=== PATIENT | female | born 1965 | race Caucasian/White ===

== ENCOUNTER 2020-10-04 09:09 | Outpatient (REF) | payer OTHER, SELFPAY ==
[2020-10-04 10:07] LABS: MANUAL DIFF FLAG NO
[2020-10-04 10:24] LABS: Basophils Percent Auto 0.5 % (0-2); Eosinophils Absolute Auto 0.2 X10*3/uL (0.0-0.4); Eosinophils Percent Auto 2.1 % (0-4); Hematocrit 41.2 % (37-47); Hemoglobin 13.9 g/dl (12.0-16.0); Imm Gran Abs Auto 0.02 X10*3/uL (0.00-0.03); Imm Gran Pct Auto 0.2 % (0.0-0.4); Lymphocytes Absolute Auto 2.9 X10*3/uL (1.2-4.9); Lymphocytes Percent Auto 35.1 % (20-40); Mean Corpuscular HGB Conc 33.7 g/dl (31.0-35.0); Mean Corpuscular Hemoglobin 29.5 pg (27.0-33.0); Mean Corpuscular Volume 87.5 fL (80-98); Mean Platelet Volume 9.4 fL (9.4-12.3); Monocytes Absolute Auto 0.6 X10*3/uL (0.1-1.2); Monocytes Percent Auto 6.7 % (2-11); Neutrophils Absolute Auto 4.5 X10*3/uL (2.0-8.3); Neutrophils Percent Auto 55.4 % (45-73); Platelet Count 245 X10*3/uL (160-400); Red Blood Count 4.71 X10*6/uL (4.20-5.50); Red Cell Distribution Width 12.8 % (11.0-16.0); White Blood Count 8.2 X10*3/uL (4.8-10.8)
[2020-10-04 10:34] LABS: Alanine Aminotransferase 48 U/L (0-31); Albumin Level 4.2 g/dL (3.5-5.0); Alkaline Phosphatase 76 U/L (39-117); Anion Gap 11 (12-20); Aspartate Amino Transferase 31 U/L (5-31); Bilirubin Total 0.5 mg/dL (0.0-1.0); Blood Urea Nitrogen 14 mg/dL (9-16); Calcium 8.8 mg/dL (8.4-10.2); Carbon Dioxide 28 mmol/L (22-29); Chloride 105 mmol/L (96-108); Cholesterol 186 mg/dL; Estimated Glomerular Filt Rate > 60; Glucose Fasting 102 mg/dL (60-99); HDL Cholesterol 47 mg/dL; LDL Cholesterol Calculated 120 mg/dl; Potassium 4.1 mmol/l (3.3-5.1); Sodium 140 mmol/L (135-145); Triglycerides 98 mg/dL
[2020-10-04 10:59] LABS: TSH reflex Free T4 1.47 mIU/mL (0.32-4.0); Vitamin D 25-OH Total 33.4 ng/mL (>30)
[2020-10-05 12:52] LABS: CA-125 8 U/mL (<35)
== END 2020-10-04 09:10 | disposition home or self-care (01) ==
LOC: HO.LAB 09:09
PROVIDERS: Visit Provider Internal Medicine
DX: E66.09 Other obesity due to excess calories (principal); K21.9 Gastro-esophageal reflux disease without esophagitis; E55.9 Vitamin D deficiency, unspecified; Z80.0 Family history of malignant neoplasm of digestive organs
CPT/HCPCS: 36415; 80053; 80061; 82306; 84443; 85025; 86304

== ENCOUNTER 2020-10-20 08:10 | Outpatient (REF) | payer OTHER, SELFPAY ==
--- NOTE | 2020-10-20 08:15 | MM_ITS ---
EXAMINATION: MM SCREENING DIGITAL BREAST TOMOSYNTHESIS, BILATERAL CLINICAL INFORMATION: Screening. Asymptomatic. Family history breast cancer in 4 maternal aunts. Personal history resection 4 mm tumor left breast 10/29/2016. The lifetime risk of breast cancer based on the Tyrer-Cuzick Model is 25%. COMPARISON: Mammography: 10/15/2019, 04/06/2018, 04/02/2017, 10/11/2016, 09/13/2016 TECHNIQUE: Digital breast tomosynthesis is performed in both the craniocaudal and mediolateral oblique views along with computer-aided detection (CAD). Synthesized 2D images are generated from the tomosynthesis. Additional exaggerated right CC view is provided. FINDINGS: The breasts are heterogeneously dense, which may obscure small masses (ACR BI-RADS breast composition Category c). There are no significant masses, abnormal calcifications, or other abnormalities. There are postsurgical changes on the left with minor scarring. There are 2 biopsy clip markers again noted left breast just medial to midline. MM/MM tomosynthesis screening BI IMPRESSION: No mammographic evidence of malignancy. ASSESSMENT: BI-RADS 2: Benign RECOMMENDATION: 1. Routine annual mammography screening. 2. The lifetime risk of breast cancer based on the Tyrer-Cuzick Model is 25%. Additional annual adjunct screening with breast MRI may be of benefit in women with a risk score of 20% or greater. This patient's information was entered into a reminder system with a target due date for their next mammogram.
== END 2020-10-20 08:11 | disposition home or self-care (01) ==
LOC: HO.MAMMO 08:10
PROVIDERS: Visit Provider Surgery
DX: Z12.31 Encounter for screening mammogram for malignant neoplasm of breast (principal)
CPT/HCPCS: 77063; 77067

== ENCOUNTER 2020-10-25 08:52 | Outpatient (REF) | payer OTHER, SELFPAY ==
--- NOTE | 2020-10-25 08:56 | US_ITS ---
EXAMINATION: US COMPLETE ABDOMEN WITH LIVER ELASTOGRAPHY CLINICAL INFORMATION: Elevation of levels of liver transaminase. COMPARISON: None. TECHNIQUE: Real-time imaging of the abdominal viscera. Noninvasive ultrasound liver fibrosis assessment is performed using [employer] ElastPQ point quantification shear wave elastography (pSWE) with a 5 MHz transducer. Multiple elastography samples are obtained. FINDINGS: PANCREAS: Normal. The visualized pancreatic head and body are normal in appearance. The remainder of the pancreas is obscured from visualization by the overlying bowel gas. ABDOMINAL AORTA: The proximal, middle, and distal aortic segments are normal in caliber. INFERIOR VENA CAVA: Visualized portions are normal. LIVER: The liver demonstrates increased size, normal contour and increased echogenicity. No focal lesion or intrahepatic biliary duct dilatation. The right lobe measures 17.3 cm in length. The left lobe measures 13.9 cm in length. There is normal hepatopedal flow seen in the portal vein on Doppler exam. Shear wave elastography provides a median stiffness of 1.39 m/s (reference: normal median stiffness is 0.81 - 1.22 m/s). The IQR/median stiffness to assess sampling precision is 0.24 (reference: optimal IQR/median stiffness is under 0.3). GALLBLADDER: Normal. The gallbladder is physiologically distended without evidence of stones, sludge, polyps, wall thickening, or pericholecystic fluid. COMMON BILE DUCT: Normal in caliber measuring 0.41 cm in diameter. RIGHT KIDNEY: Normal. No hydronephrosis. No renal calculi or focal parenchymal lesions. The kidney measures 12.6 cm in maximum dimension. LEFT KIDNEY: Normal. No hydronephrosis. No renal calculi or focal parenchymal lesions. The kidney measures 12.3 cm in maximum dimension. SPLEEN: Normal. The spleen measures 11.0 cm in maximum dimension. FREE FLUID: None. US/US abdomen comp w elastography IMPRESSION: 1. Mild hepatomegaly with increased liver echogenicity. No focal mass seen. 2. Slightly lobulated lower pole left kidney. No echogenic renal stones. No echogenic gallstones. 3. Elastography: Capv-kn-[id number] fibrosis, stage F2 - F3.
== END 2020-10-25 08:53 | disposition home or self-care (01) ==
LOC: HO.US 08:52
PROVIDERS: PCP Internal Medicine; Visit Provider Internal Medicine
DX: R74.01 Elevation of levels of liver transaminase levels (principal)
CPT/HCPCS: 76705; 76981

== ENCOUNTER 2021-05-16 08:01 | Outpatient (REF) | payer OTHER, SELFPAY ==
--- NOTE | ~2021-05-16 | MM_ITS ---
EXAMINATION: BONE DENSITOMETRY CLINICAL INDICATION: Screening for osteoporosis. COMPARISON: None (current study represents initial baseline exam). TECHNIQUE: Using a [employer] DXA System (software version: 13.1) manufactured by [employer], dual-energy x-ray absorptiometry was performed of the lumbar spine and left hip. The images are of good technical quality. Summary results are attached. FINDINGS: AP SPINE L1-L4: BMD 1.277 g/cm2, Z-score 0.9, T-score 0.8, normal. LEFT FEMUR, NECK: BMD 1.147 g/cm2, Z-score 1.4, T-score 0.8, normal. LEFT FEMUR, TOTAL: BMD 1.361 g/cm2, Z-score 3.0, T-score 2.8, normal. IDENTIFIED RISK FACTORS: Menopause. HISTORY OF FRACTURE: None listed. MEDICATIONS: Multivitamin. MM/XR DEXA axial skeleton IMPRESSION: 1. DIAGNOSIS: Normal bone density based on the lowest T-score value of 0.8 in the lumbar spine and femur neck applying World Health Organization criteria. 2. 10-YEAR FRACTURE RISK PREDICTION, FRAX: Major osteoporotic fracture (clinical spine, forearm, hip or shoulder) 4.1%. Hip fracture 0.0%. 3. Treatment Recommendations: NOF guidelines recommend consideration for treatment in postmenopausal women and men age 50 and older presenting with the following: -A hip or vertebral (clinical or morphometric) fracture. -T-score less than or equal to -2.5 at the femoral neck or spine after appropriate evaluation to exclude secondary causes. -Low bone mass at the hip or spine and a 10-year fracture probability by FRAX of greater than or equal to 3% for hip fracture or greater than or equal to 20% for major osteoporotic fracture based on the [place] adapted WHO algorithm. 4. Other Recommendations: All treatment decisions require clinical judgment and consideration of individual patient factors, including patient preferences, comorbidities, previous drug use, risk factors not captured in the FRAX model (e.g. frailty, falls, vitamin D deficiency, increased bone turnover, interval significant decline in bone density) and possible under or overestimation of fracture risk by FRAX. FUTURE SCAN RECOMMENDATION: People with diagnosed cases of osteoporosis or at high risk for fracture should have regular bone mineral density tests. For patients eligible for Medicare, routine testing is allowed once every 2 years. The testing frequency can be increased to one year for patients who have rapidly progressing disease, those who are receiving or discontinuing medical therapy to restore bone mass, or have additional risk factors.
== END 2021-05-16 08:02 | disposition home or self-care (01) ==
LOC: HO.MAMMO 08:01
PROVIDERS: Visit Provider Internal Medicine
DX: Z13.820 Encounter for screening for osteoporosis (principal); Z78.0 Asymptomatic menopausal state
CPT/HCPCS: 77080

== ENCOUNTER 2021-06-30 07:25 | Outpatient (REF) | payer OTHER, SELFPAY ==
[2021-06-30 08:59] LABS: Alanine Aminotransferase 33 U/L (0-31); Albumin Level 4.1 g/dL (3.5-5.0); Alkaline Phosphatase 83 U/L (39-117); Anion Gap 13 (12-20); Aspartate Amino Transferase 26 U/L (5-31); Bilirubin Total 0.8 mg/dL (0.0-1.0); Blood Urea Nitrogen 15 mg/dL (9-16); Carbon Dioxide 24 mmol/L (22-29); Chloride 109 mmol/L (96-108); Cholesterol 171 mg/dL; Estimated Glomerular Filt Rate > 60; Glucose Fasting 103 mg/dL (60-99); HDL Cholesterol 51 mg/dL; LDL Cholesterol Calculated 109 mg/dl; Sodium 142 mmol/L (135-145); Total Protein 6.7 g/dL (6.5-8.0); Triglycerides 58 mg/dL
[2021-07-02 08:46] LABS: HBc Num1 0.06 S/CO (0.00-0.79); HBsAGNum1 0.19 S/CO (0.00-0.99); Hepatitis B Core Antibody Nonreactive (Nonreactive); Hepatitis B Surface Antigen Negative (Negative); ~HepC Num1 0.12 S/CO (0.00-0.79); ~Hepatitis C Antibody Nonreactive (Nonreactive)
[2021-07-02 08:58] LABS: HBS Num1 0.47 mIU/mL (0-7.99); ~Hepatitis B Surface Antibody NONREACTIVE (Nonreactive)
[2021-07-02 17:41] LABS: Lyme Abs Screen <0.90 index
[2021-07-02 22:37] LABS: CA-125 9 U/mL (<35)
[2021-07-04 08:07] LABS: Hepatitis A Antibody IgM 0.11 Index (0-0.79); ~Hepatitis A Antibody IgM Nonreactive (Nonreactive)
[2021-07-05 12:47] LABS: Vitamin D 25-OH, D2 <4 ng/mL; Vitamin D 25-OH, D3 35 ng/mL; Vitamin D 25-OH, Total 35 ng/mL (30-100)
== END 2021-06-30 07:26 | disposition home or self-care (01) ==
LOC: HO.LAB 07:25
PROVIDERS: PCP Internal Medicine; Visit Provider Internal Medicine
DX: R74.01 Elevation of levels of liver transaminase levels (principal); E55.9 Vitamin D deficiency, unspecified; E78.5 Hyperlipidemia, unspecified; M25.50 Pain in unspecified joint; Z80.41 Family history of malignant neoplasm of ovary
CPT/HCPCS: 36415; 80053; 80061; 82306; 86304; 86617; 86618; 86704; 86706; 86709; 86803; 87340

== ENCOUNTER 2021-12-28 07:52 | Outpatient (REF) | payer OTHER, SELFPAY ==
[2021-12-28 08:18] LABS: MANUAL DIFF FLAG NO
[2021-12-28 08:29] LABS: Basophils Absolute Auto 0.1 X10*3/uL (0.0-0.2); Basophils Percent Auto 0.6 % (0-2); Eosinophils Absolute Auto 0.1 X10*3/uL (0.0-0.4); Eosinophils Percent Auto 1.6 % (0-4); Hematocrit 40.2 % (37.0-47.0); Hemoglobin 13.8 g/dl (12.0-16.0); Imm Gran Abs Auto 0.04 X10*3/uL (0.00-0.03); Imm Gran Pct Auto 0.5 % (0.0-0.4); Lymphocytes Absolute Auto 2.7 X10*3/uL (1.2-4.9); Lymphocytes Percent Auto 34.4 % (20-40); Mean Corpuscular HGB Conc 34.3 g/dl (31.0-35.0); Mean Corpuscular Hemoglobin 30.1 pg (27.0-33.0); Mean Corpuscular Volume 87.8 fL (80.0-98.0); Mean Platelet Volume 9.6 fL (9.4-12.3); Monocytes Absolute Auto 0.5 X10*3/uL (0.1-1.2); Monocytes Percent Auto 6.8 % (2-11); NRBC Pct Auto 0.4 /100WBC (0.0-0.2); Neutrophils Absolute Auto 4.5 x10*3/uL (2.0-8.3); Neutrophils Percent Auto 56.1 % (45-73); Platelet Count 231 X10*3/uL (160-400); Red Blood Count 4.58 X10*6/uL (4.20-5.50); Red Cell Distribution Width 13.2 % (11.0-16.0)
[2021-12-28 09:00] LABS: Alanine Aminotransferase 35 U/L (0-31); Albumin Level 4.1 g/dL (3.5-5.0); Alkaline Phosphatase 82 U/L (39-117); Anion Gap 10 (12-20); Aspartate Amino Transferase 24 U/L (5-31); Bilirubin Total 0.9 mg/dL (0.0-1.0); Blood Urea Nitrogen 15 mg/dL (9-16); Calcium 9.4 mg/dL (8.4-10.2); Carbon Dioxide 28 mmol/L (22-29); Chloride 107 mmol/L (96-108); Cholesterol 165 mg/dL; Estimated Glomerular Filt Rate > 60; Glucose Fasting 101 mg/dL (60-99); HDL Cholesterol 47 mg/dL; LDL Cholesterol Calculated 104 mg/dl; Potassium 4.4 mmol/L (3.3-5.1); Sodium 141 mmol/L (135-145); Total Protein 6.8 g/dL (6.5-8.0); Triglycerides 72 mg/dL
[2021-12-28 10:03] LABS: HBsAGNum1 0.23 S/CO (0.00-0.99); Hepatitis B Surface Antigen Negative (Negative); ~HepC Num1 0.11 S/CO (0.00-0.79); ~Hepatitis C Antibody Nonreactive (Nonreactive)
[2021-12-28 12:34] LABS: HBc Num1 0.09 S/CO (0.00-0.79); Hepatitis A Antibody IgM 0.29 Index (0-0.79); Hepatitis B Core Antibody Nonreactive (Nonreactive); ~Hepatitis A Antibody IgM Nonreactive (Nonreactive); ~Hepatitis B Surface Antibody NONREACTIVE (Nonreactive)
[2021-12-31 17:52] LABS: CA 125 New Method 7 U/mL (<35); CA-125 7 U/mL (<35)
[2022-01-02 13:41] LABS: Vitamin D 25-OH, D2 <4 ng/mL; Vitamin D 25-OH, D3 34 ng/mL; Vitamin D 25-OH, Total 34 ng/mL (30-100)
== END 2021-12-28 07:53 | disposition home or self-care (01) ==
LOC: HO.LAB 07:52
PROVIDERS: PCP Internal Medicine; Visit Provider Internal Medicine
DX: E66.9 Obesity, unspecified (principal); Z68.31 Body mass index [BMI] 31.0-31.9, adult; R74.01 Elevation of levels of liver transaminase levels; E55.9 Vitamin D deficiency, unspecified; K21.9 Gastro-esophageal reflux disease without esophagitis
CPT/HCPCS: 36415; 80053; 80061; 82306; 85025; 86304; 86704; 86706; 86709; 86803; 87340

== ENCOUNTER → 2022-02-19 08:13 | Outpatient (BNVA) | payer OTHER, SELFPAY | PROVIDERS: PCP Internal Medicine; Referring Provider Internal Medicine; Visit Provider Nurse Practitioner | DX: R74.01 Elevation of levels of liver transaminase levels (principal) ==

== ENCOUNTER 2022-03-16 08:39 | Outpatient (REF) | payer OTHER, SELFPAY ==
[2022-03-16 09:40] LABS: Gamma Glutamyl Transpeptidase 13 U/L (7-33)
[2022-03-16 10:05] LABS: Ferritin 16 ng/mL (10-250); TSH reflex Free T4 1.09 uIU/mL (0.32-4.0)
[2022-03-19 15:56] LABS: Mitochondrial Antibodies NEGATIVE (NEGATIVE)
[2022-03-20 11:47] LABS: Alpha Fetoprotein 3.5 ng/mL
[2022-03-20 23:36] LABS: Smooth Muscle Antibody <20 U (<20)
== END 2022-03-16 08:40 | disposition home or self-care (01) ==
LOC: HO.LAB 08:39
PROVIDERS: PCP Internal Medicine; Visit Provider Nurse Practitioner
DX: R74.01 Elevation of levels of liver transaminase levels (principal); Z83.49 Family history of other endocrine, nutritional and metabolic diseases
CPT/HCPCS: 36415; 82105; 82728; 82977; 84443; 85610; 86015; 86255; 86256

== ENCOUNTER 2022-03-27 07:50 | Outpatient (REF) | payer OTHER, SELFPAY ==
--- NOTE | ~2022-03-27 | US_ITS ---
EXAMINATION: US ABDOMEN LIMITED CLINICAL INFORMATION: Elevated liver transaminase. COMPARISON: Previous exam October 2020 TECHNIQUE: Real-time imaging of the right upper quadrant abdominal viscera. Full abdomen exam was inadvertently performed with imaging of the left kidney, spleen, aorta and IVC FINDINGS: PANCREAS: Normal. LIVER: Liver echotexture is increased. The liver is normal in size. The liver contour is normal. No focal hepatic lesion. There is no intrahepatic biliary duct dilatation seen. GALLBLADDER: Normal. The gallbladder is physiologically distended without evidence of stones, sludge, polyps, wall thickening or pericholecystic fluid. COMMON BILE DUCT: Normal in caliber measuring 0.4 cm in diameter. RIGHT KIDNEY: Normal. No hydronephrosis. No renal calculi or focal parenchymal lesions. The kidney measures 10.7 cm in maximum dimension. FREE FLUID: None. The aorta and IVC are normal. The left kidney is normal and measures 10.7 cm in length. The spleen is normal and measures 11.8 cm in length US/US abdomen limited IMPRESSION: Echogenic liver. Differential would include fatty infiltration of hepatocellular disease. Otherwise unremarkable exam.
== END 2022-03-27 07:51 | disposition home or self-care (01) ==
LOC: HO.US 07:50
PROVIDERS: Visit Provider Nurse Practitioner
DX: R74.01 Elevation of levels of liver transaminase levels (principal); Z83.49 Family history of other endocrine, nutritional and metabolic diseases
CPT/HCPCS: 76705

== ENCOUNTER 2022-04-02 08:52 | Outpatient (REF) | payer OTHER, SELFPAY ==
--- NOTE | ~2022-04-02 | MM_ITS ---
EXAMINATION: MM SCREENING DIGITAL BREAST TOMOSYNTHESIS, BILATERAL CLINICAL INFORMATION: Screening. Asymptomatic. 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 The lifetime risk of breast cancer based on the Tyrer-Cuzick Model is 14%. COMPARISON: Mammography: 10/20/2020, 10/15/2019, 04/06/2018, 11/02/2016 TECHNIQUE: Digital breast tomosynthesis is performed in both the craniocaudal and mediolateral oblique views along with computer-aided detection (CAD). Synthesized 2D images are generated from the tomosynthesis. FINDINGS: The breasts are heterogeneously dense, which may obscure small masses (ACR BI-RADS breast composition Category c). There are no significant masses, abnormal calcifications, or other abnormalities. Left breast has minor scarring and 2 biopsy clip markers posterior medial breast similar to prior studies. There are scattered shifting fibroglandular parenchymal asymmetries related to variation in positioning. No developing density. MM/MM tomosynthesis screening BI IMPRESSION: No significant changes from prior studies. ASSESSMENT: BI-RADS 2: Benign RECOMMENDATION: Routine annual mammography screening. This patient's information was entered into a reminder system with a target due date for their next mammogram.
== END 2022-04-02 08:53 | disposition home or self-care (01) ==
LOC: HO.MAMMO 08:52
PROVIDERS: PCP Internal Medicine; Visit Provider Internal Medicine
DX: Z12.31 Encounter for screening mammogram for malignant neoplasm of breast (principal)
CPT/HCPCS: 77063; 77067

== ENCOUNTER 2023-04-04 07:50 | Outpatient (REF) | payer OTHER, SELFPAY ==
--- NOTE | ~2023-04-04 | MM_ITS ---
EXAMINATION: MM SCREENING DIGITAL BREAST TOMOSYNTHESIS, BILATERAL CLINICAL INFORMATION: Screening. Asymptomatic. The lifetime risk of breast cancer based on the Tyrer-Cuzick Model is 20.7.%. COMPARISON: Mammography: This study is compared to prior exams dating back to 2017. TECHNIQUE: Digital breast tomosynthesis is performed in both the craniocaudal and mediolateral oblique views along with computer-aided detection (CAD). Synthesized 2D images are generated from the tomosynthesis. FINDINGS: The breasts are heterogeneously dense, which may obscure small masses (ACR BI-RADS breast composition Category c). Left breast: At the upper inner quadrant of the left breast, at a middle depth and between 2 previously placed biopsy tissue markers, there is a well-circumscribed focal asymmetry which warrants additional mammographic imaging. This finding may represent adjacent to mammary lymph nodes versus cysts. There is architectural changes in the 12:00 region of the left breast from prior surgery for benign disease.. Right breast: In the right breast, no significant masses, abnormal calcifications, or other abnormalities. MM/MM tomosynthesis screening BI IMPRESSION: Focal asymmetry of the left breast warrants additional mammographic imaging. Sonographic imaging is recommended at the discretion of the diagnostic radiologist. Benign postsurgical changes of the left breast present. No mammographic signs of malignancy right breast. Breast cancer risk assessment by the Tyrer-Cuzick Model is 20.7.%. This places the patient at high risk for malignancy. If the patient is not already having annual adjunct screening breast MRI, this is recommended. ASSESSMENT: BI-RADS BI-RADS 0 - Incomplete: Needs additional Imaging. RECOMMENDATION: Routine annual mammography screening. Additional Imaging required This patient's information was entered into a reminder system with a target due date for their next mammogram.
== END 2023-04-04 07:51 | disposition home or self-care (01) ==
LOC: HO.MAMMO 07:50
PROVIDERS: PCP Internal Medicine; Visit Provider Internal Medicine
DX: Z12.31 Encounter for screening mammogram for malignant neoplasm of breast (principal)
CPT/HCPCS: 77063; 77067

== ENCOUNTER → 2023-04-04 08:00 | Outpatient (BNV) | payer OTHER, SELFPAY | PROVIDERS: PCP Internal Medicine; Visit Provider Radiology Diagnostic Radiology | DX: Z12.31 Encounter for screening mammogram for malignant neoplasm of breast (principal) | CPT/HCPCS: 77063; 77067 ==

== ENCOUNTER 2023-05-09 09:04 | Outpatient (REF) | payer OTHER, SELFPAY ==
--- NOTE | ~2023-05-09 | MM_ITS ---
EXAMINATION: MM DIAGNOSTIC DIGITAL BREAST TOMOSYNTHESIS, LEFT CLINICAL INFORMATION: The patient is called back for further evaluation of the left breast focal asymmetry noted on recent screening mammography from 04/04/2023. COMPARISON: Mammography: This study is compared to prior mammograms dating back to 2017. MAMMOGRAPHY: TECHNIQUE: Digital breast tomosynthesis is performed in both the craniocaudal and mediolateral oblique views along with computer-aided detection (CAD). Synthesized 2D images are generated from the tomosynthesis. A full lateral view of the left breast and MLO and CC spot compression imaging of the left breast was performed. FINDINGS: There are scattered areas of fibroglandular density (ACR BI-RADS breast composition Category b). Additional mammographic imaging reveals no persistent underlying abnormality. There are no significant masses, abnormal calcifications, or other abnormalities. Incidental note is made of biopsy tissue markers. ULTRASOUND: Sonography of the upper inner quadrant of the left breast reveals no discrete abnormality. Results are provided to the patient at time of visit by the technologist. MM/MM tomosynthesis added views L IMPRESSION: No mammographic evidence of malignancy. ASSESSMENT: BI-RADS BI-RADS 2 - Benign Findings RECOMMENDATION: 1 year F/U This patient's information was entered into a reminder system with a target due date for their next mammogram.
== END 2023-05-09 09:05 | disposition home or self-care (01) ==
LOC: HO.MAMMO 09:04
PROVIDERS: PCP Internal Medicine; Visit Provider Internal Medicine
DX: N64.89 Other specified disorders of breast (principal)
CPT/HCPCS: 76642; 77061; 77065

== ENCOUNTER → 2023-05-09 09:30 | Outpatient (BNV) | payer OTHER, SELFPAY | PROVIDERS: PCP Internal Medicine; Visit Provider Radiology Diagnostic Radiology | DX: R92.2 Inconclusive mammogram (principal) | CPT/HCPCS: 76642; 77065 ==

== ENCOUNTER 2023-08-07 08:48 | Outpatient (AMB) | payer OTHER, SELFPAY ==
[2023-08-07 08:55] VITALS: BP 130/70; PULSE 75; O2SAT 97; BMI 33.3
--- NOTE | 2023-08-07 08:55 | MHC.PC.OV ---
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 Last mammogram was 2022 and was normal. Last colonoscopy was few years ago and she complains of blood in the stools occasionally and has family history of colon cancer. Will have colonoscopy 08/19/2023 in [place]. Complains of right lower quadrant abdominal pain that started mid June and happens occasionally crampy like in quality. No weight loss. Some occasional constipation. Has strong family history of ovarian cancer, breast cancer and pancreatic cancer. FOR[facility]LY [facility], [facility] Medical History (Updated 08/07/23 @ 09:24 by Blaire Simpson MD) Class 1 obesity with body mass index (BMI) of 32.0 to 32.9 in adult Class 1 obesity with body mass index (BMI) of 31.0 to 31.9 in adult Screening for osteoporosis Family history of ovarian cancer Transaminitis GERD (gastroesophageal reflux disease) Abnormal finding on imaging Surgical History History of endoscopy History of colonoscopy History of carpal tunnel surgery of right wrist History of carpal tunnel surgery of left wrist History of D&C History of breast lump/mass excision Family History Father CVD (cardiovascular disease) CHF (congestive heart failure) Aortic stenosis Mother Ovarian cancer Diabetes Maternal Uncle Colon cancer Maternal Aunt Cancer Family/Other Breast cancer Ovarian cancer Pancreatic cancer Social History Housing: House Alcohol intake: never Patient Tobacco Use Status: Never used Tobacco e-Cigarette/Vaping Use: Never Used Second Hand Smoke Exposure: No service: No Current occupational status: employed Current occupational exposures/hazards: No Cognitive needs: No Hearing needs: No Vision needs: Yes Questionnaire Thrive Questionnaire Date Thrive assessed: 01/07/23 MARCY-7 AMB Questionnaire MARCY-7 Date MARCY - 7 assessed: 01/07/23 Source: Developed by Drs. Kota Davis, Lesli Macdonald, Dallin Keller and colleagues, with an educational yohana from [employer]. Review of Systems Const All systems reviewed & are unremarkable except as noted in HPI and below Eyes Reports no additional complaints, Denies change in vision and Denies other visual disturbances Card Denies chest pain at rest, Denies chest pain with activity, Denies edema, Denies irregular heart rhythm, Denies claudication, Denies dyspnea, Denies dyspnea on exertion, Denies orthopnea, Denies paroxysmal nocturnal dyspnea and Denies slow heart rate Resp Denies cough, Denies dyspnea and Denies dyspnea on exertion GI Reports abdominal pain, Reports hematochezia, Denies change in bowel habits, Reports constipation, Denies excessive flatus, Reports heartburn, Denies nausea and Denies vomiting Denies urinary incontinence, Denies urinary hesitancy and Denies urinary urgency Musc Denies abnormal gait, Denies atrophy, Denies deformity and Denies limited range of motion Skin/Breast Denies bleeding lesions, Denies changing lesions and Denies rash Neuro Denies abnormal gait and Denies lack of coordination Physical exam (Primary Care) Vital Signs: Last Vital Signs Pulse 75 08/07/23 08:55 BP 130/70 08/07/23 08:55 Pulse Ox 97 08/07/23 08:55 Oxygen Delivery Method Room Air 08/07/23 08:55 BMI result Body Mass Index 33.3 Tobacco/Smoking Status: Tobacco use Status Tobacco use date assessed 01/07/23 08/07/23 09:00 Patient Tobacco Use Status Never used Tobacco 08/07/23 09:00 e-Cigarette/Vaping Use Never Used 08/07/23 09:00 Thrive Assessment: Date of Thrive Assessment Date Thrive assessed 01/07/23 08/07/23 09:00 Const Orientation/consciousness: patient oriented x3 HENMT Head: Yes normal to inspection, Yes normocephalic and Yes atraumatic Ears: external ears normal Eyes General: appearance normal, both eyes and all related structures Eyelids: Yes eyelids normal Conjunctivae: conjunctivae normal Neck Neck: Yes normal visual inspection and Yes supple Resp Effort & Inspection: normal respiratory effort Auscultation: clear to auscultation bilaterally Cardio Jugular venous distension: no JVD Rate: regular rate Rhythm: regular rhythm Heart sounds: S1 normal heart sound present and S2 normal heart sound present GI Other: psoas sign negative Inspection: Yes normal to inspection Palpation (GI): Soft to palpation and nontender Auscultation: normal bowel sounds Skin General skin exam: no rashes or lesions noted Neuro General: patient oriented x3 and no focal motor deficits Extrem General: Yes full ROM Psych Appearance: grossly normal Office Procedures Flu Questionnaire Does the patient have a severe egg allergy?: No Immunizations flu vacc [id number] 6mos up(PF) 60 mcg(15 mcgx4)/0.5 mL IM syringe Performing Provider: Blaire Simpson MD [facility] Documented (not given) by: JUAN C Vance on 08/07/23 09:01 Reason Not Given: Patient Refused Assessment and Plan Assessment & Plan (1) Physical exam: Code(s): Z00.00 - Encounter for general adult medical examination without abnormal findings Plan: Repeat in a year Orders: Orders Influenza [id number] Immunization Today Z23 - Encounter for immunization Lipid Panel Today Z00.00 - Encounter for general adult medical examination without abnormal findings CA-125 Today Z80.41 - Family history of malignant neoplasm of ovary US pelvic and transvaginal Today R10.2 - Pelvic and perineal pain Comprehensive [place]. Panel Fast Today Z00.00 - Encounter for general adult medical examination without abnormal findings XR DEXA axial skeleton Today N95.9 - Unspecified menopausal and perimenopausal disorder Coding Level of Care Code Est Pt Prev Care 40-64y(18224) Diagnoses Physical exam Z00.00 Time Spent (min) 33
== END 2023-08-07 09:30 | disposition home or self-care (01) ==
PROVIDERS: Visit Provider Internal Medicine
DX: Z00.00 Encounter for general adult medical examination without abnormal findings (principal)
CPT/HCPCS: 99396

== ENCOUNTER 2023-08-26 12:29 | Outpatient (REF) | payer OTHER, SELFPAY ==
--- NOTE | ~2023-08-26 | US_ITS ---
EXAMINATION: US PELVIS CLINICAL INFORMATION: Pelvic pain; postmenopausal patient. COMPARISON: Pelvic ultrasound dated 08/18/2013. TECHNIQUE: Ultrasound of the pelvis is performed using both transabdominal and transvaginal transducers along with Doppler. Transvaginal imaging is performed due to inadequate visualization transabdominally. FINDINGS: Uterus: The uterus is anteverted and anteflexed. The uterus measures 7.0 x 3.3 x 3.9 cm. A regular homogeneous endometrium is identified measuring 0.6 cm. The right ovary is normal in size and echotexture, measuring 2.2 x 1.6 x 1.4 cm for a volume of 2.5 mL. The left ovary is nonvisualized. There is no pelvic free fluid. No adnexal mass is seen. US/US pelvic and transvaginal IMPRESSION: 1. There is abnormal mild postmenopausal thickening of the endometrial stripe to 6 mm. Gynecology evaluation and management are recommended, with consideration for tissue sampling, if clinically indicated. 2. The left ovary is not visualized.
== END 2023-08-26 12:30 | disposition home or self-care (01) ==
LOC: HO.US 12:29
PROVIDERS: PCP Internal Medicine; Visit Provider Internal Medicine
DX: R10.2 Pelvic and perineal pain (principal)
CPT/HCPCS: 76830; 76856

== ENCOUNTER 2023-08-30 08:19 | Outpatient (REF) | payer OTHER, SELFPAY ==
[2023-08-30 11:02] LABS: MANUAL DIFF FLAG NO
[2023-08-30 11:04] LABS: Basophils Absolute Auto 0.1 X10*3/uL (0.0-0.2); Basophils Percent Auto 0.8 % (0-2); Eosinophils Absolute Auto 0.2 X10*3/uL (0.0-0.4); Eosinophils Percent Auto 1.9 % (0-4); Hemoglobin 13.4 g/dl (12.0-16.0); Imm Gran Abs Auto 0.03 X10*3/uL (0.00-0.03); Imm Gran Pct Auto 0.4 % (0.0-0.4); Lymphocytes Absolute Auto 2.8 X10*3/uL (1.2-4.9); Lymphocytes Percent Auto 33.9 % (20-40); Mean Corpuscular HGB Conc 34.4 g/dl (31.0-35.0); Mean Corpuscular Hemoglobin 29.6 pg (27.0-33.0); Mean Corpuscular Volume 86.1 fL (80.0-98.0); Mean Platelet Volume 10.2 fL (9.4-12.3); Monocytes Absolute Auto 0.5 X10*3/uL (0.1-1.2); Monocytes Percent Auto 6.4 % (2-11); Neutrophils Absolute Auto 4.7 x10*3/uL (2.0-8.3); Neutrophils Percent Auto 56.6 % (45-73); Platelet Count 256 X10*3/uL (160-400); Red Blood Count 4.53 X10*6/uL (4.20-5.50); Red Cell Distribution Width 13.2 % (11.0-16.0); White Blood Count 8.3 X10*3/uL (4.8-10.8)
[2023-08-30 11:26] LABS: Alanine Aminotransferase 36 U/L (0-31); Alkaline Phosphatase 88 U/L (39-117); Anion Gap 12 (12-20); Aspartate Amino Transferase 29 U/L (5-31); Bilirubin Total 0.4 mg/dL (0.0-1.0); Blood Urea Nitrogen 14 mg/dL (9-16); Calcium 9.1 mg/dL (8.4-10.2); Carbon Dioxide 25 mmol/L (22-29); Chloride 110 mmol/L (96-108); Cholesterol 168 mg/dL (<200); Estimated Glomerular Filt Rate > 60; Glucose Fasting 105 mg/dL (60-99); HDL Cholesterol 46 mg/dL (>40); LDL Cholesterol Calculated 105 mg/dL (<100); Potassium 3.8 mmol/L (3.3-5.1); Sodium 143 mmol/L (135-145); Total Protein 6.9 g/dL (6.5-8.0); Triglycerides 86 mg/dL (<150)
[2023-09-01 18:39] LABS: CA-125 8 U/mL (<35)
== END 2023-08-30 08:20 | disposition home or self-care (01) ==
LOC: HO.HMGCLDS 08:19
PROVIDERS: PCP Internal Medicine; Visit Provider Internal Medicine
DX: Z00.00 Encounter for general adult medical examination without abnormal findings (principal); E66.9 Obesity, unspecified; Z68.32 Body mass index [BMI] 32.0-32.9, adult; Z80.41 Family history of malignant neoplasm of ovary
CPT/HCPCS: 36415; 80053; 80061; 85025; 86304

== ENCOUNTER 2023-09-05 08:01 | Outpatient (REF) | payer OTHER, SELFPAY ==
--- NOTE | ~2023-09-05 | MM_ITS ---
EXAMINATION: BONE DENSITOMETRY CLINICAL INDICATION: Unspecified menopausal and perimenopausal disorder. COMPARISON: Baseline BD dated 05/16/2021. TECHNIQUE: Using a [employer] DXA System (software version: 13.1) manufactured by [employer], dual-energy x-ray absorptiometry was performed of the lumbar spine and left hip. The images are of good technical quality. Summary results are attached. FINDINGS: LEFT FEMUR, NECK: Current: BMD 1.176 g/cm2, Z-score 1.6, T-score 1.0, normal. Baseline: BMD 1.147 g/cm2. LEFT FEMUR, TOTAL: Current: BMD 1.316 g/cm2, Z-score 2.7, T-score 2.4, normal, 3.3% decrease from baseline (<5% change is not significant). Baseline: BMD 1.361 g/cm2. AP SPINE L1-L4: Current: BMD 1.266 g/cm2, Z-score 0.9, T-score 0.7, normal, 0.9% decrease from baseline (<5% change is not significant). Baseline: BMD 1.277 g/cm2. IDENTIFIED RISK FACTORS: Menopause. HISTORY OF FRACTURE: None listed. MEDICATIONS: Calcium/multivitamin. MM/XR DEXA axial skeleton IMPRESSION: 1. DIAGNOSIS: Normal bone density based on the lowest T-score value of 0.7 in the lumbar spine applying World Health Organization criteria. 2. 10-YEAR FRACTURE RISK PREDICTION, FRAX: According to the guidelines, FRAX calculation should only be performed on patients in the osteopenia bone density category. Therefore, FRAX was not performed on this patient. 3. Treatment Recommendations: NOF guidelines recommend consideration for treatment in postmenopausal women and men age 50 and older presenting with the following: -A hip or vertebral (clinical or morphometric) fracture. -T-score less than or equal to -2.5 at the femoral neck or spine after appropriate evaluation to exclude secondary causes. -Low bone mass at the hip or spine and a 10-year fracture probability by FRAX of greater than or equal to 3% for hip fracture or greater than or equal to 20% for major osteoporotic fracture based on the [place] adapted WHO algorithm. 4. Other Recommendations: All treatment decisions require clinical judgment and consideration of individual patient factors, including patient preferences, comorbidities, previous drug use, risk factors not captured in the FRAX model (e.g. frailty, falls, vitamin D deficiency, increased bone turnover, interval significant decline in bone density) and possible under or overestimation of fracture risk by FRAX. FUTURE SCAN RECOMMENDATION: People with diagnosed cases of osteoporosis or at high risk for fracture should have regular bone mineral density tests. For patients eligible for Medicare, routine testing is allowed once every 2 years. The testing frequency can be increased to one year for patients who have rapidly progressing disease, those who are receiving or discontinuing medical therapy to restore bone mass, or have additional risk factors.
== END 2023-09-05 08:02 | disposition home or self-care (01) ==
LOC: HO.MAMMO 08:01
PROVIDERS: PCP Internal Medicine; Visit Provider Internal Medicine
DX: Z13.820 Encounter for screening for osteoporosis (principal); Z78.0 Asymptomatic menopausal state
CPT/HCPCS: 77080

== ENCOUNTER 2023-10-24 07:45 | Outpatient (REF) | payer OTHER, SELFPAY ==
[2023-10-24 12:23] LABS: Alanine Aminotransferase 48 U/L (0-31); Albumin Level 4.1 g/dL (3.5-5.0); Alkaline Phosphatase 86 U/L (39-117); Anion Gap 13 (12-20); Aspartate Amino Transferase 27 U/L (5-31); Bilirubin Total 0.5 mg/dL (0.0-1.0); Blood Urea Nitrogen 16 mg/dL (9-16); Calcium 9.2 mg/dL (8.4-10.2); Carbon Dioxide 24 mmol/L (22-29); Chloride 110 mmol/L (96-108); Cholesterol 173 mg/dL (<200); Estimated Glomerular Filt Rate > 60; Glucose Fasting 104 mg/dL (60-99); HDL Cholesterol 48 mg/dL (>40); LDL Cholesterol Calculated 111 mg/dL (<100); Potassium 3.9 mmol/L (3.3-5.1); Sodium 143 mmol/L (135-145); Total Protein 7.2 g/dL (6.5-8.0); Triglycerides 72 mg/dL (<150)
[2023-10-25 11:54] LABS: CA-125 7 U/mL (<35)
== END 2023-10-24 07:46 | disposition home or self-care (01) ==
LOC: HO.HMGCLDS 07:45
PROVIDERS: PCP Internal Medicine; Visit Provider Internal Medicine
DX: Z00.00 Encounter for general adult medical examination without abnormal findings (principal); E66.9 Obesity, unspecified; Z68.32 Body mass index [BMI] 32.0-32.9, adult; Z80.41 Family history of malignant neoplasm of ovary
CPT/HCPCS: 36415; 80053; 80061; 86304

== ENCOUNTER 2023-10-28 07:17 | Outpatient (REF) | payer OTHER, SELFPAY ==
--- NOTE | ~2023-10-28 | CT_ITS ---
EXAMINATION: CT ABDOMEN AND PELVIS WITH CONTRAST CLINICAL INFORMATION: Right lower quadrant pain. COMPARISON: Ultrasound abdomen 03/27/2022. TECHNIQUE: Multidetector volumetric images were obtained from the superior aspect of the liver through the pubic symphysis following administration 85 mL of Omnipaque 350 intravenous contrast. Sagittal and coronal reformatted images were obtained on the technologist's workstation. Oral contrast: No. This CT examination was performed using dose optimization techniques as appropriate, variously including the following: *Automated exposure control *Adjustment of mA and/or kV according to patient size (this includes techniques or standardized protocols for targeted exams where dose is matched to indication/reason for exam; i.e. extremities or head) *Use of iterative reconstruction technique DLP: 549 mGy-cm FINDINGS: LUNG BASES: The visualized lung bases are unremarkable. LIVER, GALLBLADDER, AND BILIARY TREE: The liver is enlarged at 18.7 cm in cephalocaudad dimension with markedly decreased attenuation consistent with hepatic steatosis. There is a rounded hyperattenuating area seen adjacent to the gallbladder and falciform ligament that measures 4.9 x 3.1 x 3.3 cm which I suspect represents focal fatty sparing, however, a mass lesion cannot be entirely excluded. No biliary ductal dilatation is present. The gallbladder is unremarkable with no evidence of radiopaque gallstones, gallbladder wall thickening, or obvious pericholecystic inflammatory changes. PANCREAS: Unremarkable. SPLEEN: Unremarkable. ADRENAL GLANDS: Unremarkable. KIDNEYS AND URETERS: The kidneys are normal in size, shape, and attenuation. No hydronephrosis, hydroureter, or calculi seen. No perinephric stranding. BLADDER: Unremarkable. GASTROINTESTINAL TRACT: The small and large bowel are unremarkable aside from a few scattered colonic diverticula without diverticulitis. The appendix is unremarkable. ABDOMINAL WALL: No significant hernia is appreciated. LYMPH NODES: Normal. VASCULAR: Unremarkable. PELVIC VISCERA: The uterus and adnexa are unremarkable. OSSEOUS STRUCTURES: Unremarkable. CT/CT abdomen pelvis w IV con IMPRESSION: 1. A cause for the patient's right lower quadrant pain has not been found. The appendix is normal. 2. Incidental note made of an enlarged fatty liver with focal fatty sparing versus mass lesion, favoring the former. MRI is recommended for further evaluation. Fleischner guidelines were followed.
[2023-10-28] MEDS: iohexoL 350 MG/ML 100 ML INFUS..BTL IV (09:38)
== END 2023-10-28 07:18 | disposition home or self-care (01) ==
LOC: HO.CT 07:17
PROVIDERS: PCP Internal Medicine; Visit Provider Internal Medicine
DX: R10.31 Right lower quadrant pain (principal)
CPT/HCPCS: 74177; Q9967

== ENCOUNTER 2023-12-01 14:49 | Outpatient (REF) | payer OTHER, SELFPAY ==
--- NOTE | ~2023-12-01 | MR_ITS ---
EXAMINATION: MR ABDOMEN WITHOUT AND WITH CONTRAST CLINICAL INFORMATION: Hepatomegaly, hepatic steatosis, focal fatty sparing versus lesion adjacent to the gallbladder and falciform ligament. COMPARISON: CT abdomen/pelvis 10/28/2023. TECHNIQUE: MR abdomen was performed without and with use of 8.5 mL intravenous Gadavist gadolinium contrast. Postcontrast images are performed in multiphase dynamic sequences. Imaging was performed in 3 planes. FINDINGS: LUNG BASES: The visualized lung bases are unremarkable. LIVER, GALLBLADDER, AND BILIARY TREE: The liver is enlarged measuring 20 cm craniocaudally. There is signal loss in the opposed phase dual echo images consistent with hepatic steatosis with a focal area of fat sparing in segment IVb adjacent to the gallbladder fossa/falciform ligament corresponding to the abnormality noted on recent CT. No suspicious focal liver lesion. No biliary ductal dilatation. The gallbladder is unremarkable with no evidence of gallbladder wall thickening, or obvious pericholecystic inflammatory changes. PANCREAS: Incidentally noted, pancreatic divisum anatomy with the dominant dorsal pancreatic duct draining separate from the CBD. No main ductal dilatation. No peripancreatic inflammatory changes. No lesions. SPLEEN: Normal. ADRENAL GLANDS: Normal. KIDNEYS AND URETERS: The kidneys are normal in size, shape, and enhance symmetrically. There is a 0.8 cm T2 bright avascular Bosniak I cyst in the lateral surface of the mid right kidney, for which no imaging follow up is recommended. No hydronephrosis. No perinephric stranding. GASTROINTESTINAL TRACT: No bowel obstruction. No ascites or fluid collection. ABDOMINAL WALL: No significant hernia is appreciated. LYMPH NODES: No lymphadenopathy. VASCULAR: Unremarkable. OSSEOUS STRUCTURES: No acute or aggressive appearing osseous findings. MR/MR abdomen wo/w con IMPRESSION: 1. Hepatomegaly and hepatic steatosis with a focal area of fat sparing in segment IVb corresponding to the abnormality noted on recent CT. No suspicious focal liver lesion. 2. Incidentally noted pancreatic divisum.
[2023-12-01] MEDS: gadobutroL 10 ML VIAL IVPUSH (15:41)
== END 2023-12-01 14:50 | disposition home or self-care (01) ==
LOC: HO.MRI 14:49
PROVIDERS: PCP Internal Medicine; Visit Provider Internal Medicine
DX: R16.0 Hepatomegaly, not elsewhere classified (principal)
CPT/HCPCS: 74183; A9585

== ENCOUNTER 2024-04-06 08:01 | Outpatient (REF) | payer OTHER, SELFPAY ==
--- NOTE | ~2024-04-06 | MM_ITS ---
EXAMINATION: MM SCREENING DIGITAL BREAST TOMOSYNTHESIS, BILATERAL CLINICAL INFORMATION: Screening. Asymptomatic. COMPARISON: Mammography: This study is compared with prior exams dating back to 2017. TECHNIQUE: Digital breast tomosynthesis is performed in both the craniocaudal and mediolateral oblique views along with computer-aided detection (CAD). Synthesized 2D images are generated from the tomosynthesis. FINDINGS: The breasts are heterogeneously dense, which may obscure small masses (ACR BI-RADS breast composition Category c). There are no significant masses, abnormal calcifications, or other abnormalities. There are 2 tissue markers in the left breast from prior benign percutaneous biopsy. Postsurgical changes are present in the 12:00 region of the left breast. MM/MM tomosynthesis screening BI IMPRESSION: No mammographic evidence of malignancy. ASSESSMENT: BI-RADS BI-RADS 2 - Benign Findings RECOMMENDATION: Routine annual mammography screening. 1 year F/U This examination should not preclude the clinical evaluation of a suspicious palpable abnormality. This patient's information was entered into a reminder system with a target due date for their next mammogram.
== END 2024-04-06 08:02 | disposition home or self-care (01) ==
LOC: HO.MAMMO 08:01
PROVIDERS: PCP Internal Medicine; Visit Provider Internal Medicine
DX: Z12.31 Encounter for screening mammogram for malignant neoplasm of breast (principal)
CPT/HCPCS: 77063; 77067

== ENCOUNTER → 2024-04-06 08:15 | Outpatient (BNV) | payer OTHER, SELFPAY | PROVIDERS: PCP Internal Medicine; Visit Provider Radiology Diagnostic Radiology | DX: Z12.31 Encounter for screening mammogram for malignant neoplasm of breast (principal) | CPT/HCPCS: 77063; 77067 ==

== ENCOUNTER 2024-08-10 07:02 | Outpatient (REF) | payer OTHER, SELFPAY ==
[2024-08-10 11:01] LABS: Alanine Aminotransferase 27 U/L (0-31); Alkaline Phosphatase 79 U/L (39-117); Anion Gap 10 (12-20); Aspartate Amino Transferase 31 U/L (5-31); Bilirubin Total 0.6 mg/dL (0.0-1.0); Blood Urea Nitrogen 17 mg/dL (9-16); Calcium 9.2 mg/dL (8.4-10.2); Carbon Dioxide 25 mmol/L (22-29); Chloride 109 mmol/L (96-108); Cholesterol 169 mg/dL (<200); Estimated Glomerular Filt Rate > 60; Glucose Fasting 96 mg/dL (60-99); HDL Cholesterol 60 mg/dL (>40); LDL Cholesterol Calculated 100 mg/dL (<100); Potassium 4.1 mmol/L (3.3-5.1); Sodium 140 mmol/L (135-145); Total Protein 6.9 g/dL (6.5-8.0); Triglycerides 49 mg/dL (<150)
== END 2024-08-10 07:03 | disposition home or self-care (01) ==
LOC: HO.HMGCLDS 07:02
PROVIDERS: PCP Internal Medicine; Visit Provider Internal Medicine
DX: Z00.00 Encounter for general adult medical examination without abnormal findings (principal)
CPT/HCPCS: 36415; 80053; 80061

== ENCOUNTER 2024-08-12 07:20 | Outpatient (AMB) | payer OTHER, SELFPAY ==
--- NOTE | 2024-08-12 07:24 | A.OFFPC_ITS ---
Vital Signs 08/12/24 07:25 Height 5 ft 3 in Weight 153 lb BMI 27.1 BP 124/80 Blood Pressure Location Lt brachial Position Sitting Intake Visit Reasons: Annual PE Intake Note: Patient here for an Annual Physical Exam First Grade Teacher Required: No Accompanied by: Self / Same As Patient Allergies Cortisone Allergy (Intermediate, Verified 08/12/24 07:38) rash/itchy, rash Medication List - Last Reconciled 08/12/24 by Blaire Simpson MD lorazepam 1 mg (2 x 0.5 mg) PO DAILY PRN 1 day omeprazole 20 mg PO DAILY Tobacco use date assessed: 08/12/24 Dental Screening Dental Screen Date: 08/12/24 Did you have a dental visit in the last 12 months?: Yes Did you have a dental problem in the last 6 months where you did not have access to dental care?: No Was dental information given to patient?: Patient has dentist HPI HPI Comments History of Present Illness Details This is a 58-year-old female that comes for her physical exam. Mammogram done 2023 was normal. Colonoscopy done 2022 and next colonoscopy should be 2025 due to shown family history of colon cancer. Pap smear done 2022 was normal. Denies any chest pain or shortness on breath. Has intentionally lost weight by doing diet. [facility] Medical History (Updated 08/12/24 @ 08:04 by Blaire Simpson MD) Class 1 obesity with body mass index (BMI) of 33.0 to 33.9 in adult Class 1 obesity with body mass index (BMI) of 32.0 to 32.9 in adult Class 1 obesity with body mass index (BMI) of 31.0 to 31.9 in adult Screening for osteoporosis Family history of ovarian cancer Transaminitis GERD (gastroesophageal reflux disease) Abnormal finding on imaging Surgical History History of endoscopy History of colonoscopy History of carpal tunnel surgery of right wrist History of carpal tunnel surgery of left wrist History of D&C History of breast lump/mass excision Family History Father CVD (cardiovascular disease) CHF (congestive heart failure) Aortic stenosis Mother Ovarian cancer Diabetes Maternal Uncle Colon cancer Maternal Aunt Cancer Family/Other Breast cancer Ovarian cancer Pancreatic cancer Social History Housing: House Alcohol intake: never Patient Tobacco Use Status: Never used Tobacco e-Cigarette/Vaping Use: Never Used Second Hand Smoke Exposure: No service: No Current occupational status: employed Current occupational exposures/hazards: No Cognitive needs: No Hearing needs: No Vision needs: Yes Questionnaire PHQ-9 Over the last 2 weeks, how often have you been bothered by any of the following problems? 1. Little interest or pleasure in doing things: not at all 2. Feeling down, depressed, or hopeless: not at all 3. Trouble falling or staying asleep, or sleeping too much: not at all 4. Feeling tired or having little energy: not at all 5. Poor appetite or overeating: not at all 6. Feeling bad about yourself - or that you are a failure or have let yourself or your family down: not at all 7. Trouble concentrating on things, such as reading the newspaper or watching television: not at all 8. Moving or speaking so slowly that other people could have noticed. Or the opposite - being so fidgety or restless that you have been moving around a lot more than usual: not at all 9. Thoughts that you would be better off or of hurting yourself in some way: not at all Total score: 0 Depression Screening Interpretation: Negative Depression Screening Done: Yes 16835 - PHQ-9 Billing: Yes Source: Developed by Drs. Kota Davis, Lesli Macdonald, Dallin Keller and colleagues, with an educational yohana from [employer]. Thrive Questionnaire Date Thrive assessed: 08/10/24 I am a: Patient What is your living situation today?: I have a steady place to live Within the past 12 months, did the food you bought not last and you didn't have the money to get more?: Never true Within the past 12 months, did you worry whether your food would run out before you got money to buy more?: Never true Do you have trouble paying for medicines?: No Do you have trouble getting transportation to medical appointments?: No Do you have trouble paying your heating and electricity bill?: No Do you have trouble taking care of your child, family member or friend?: No Do you have trouble with day-to-day activities such as bathing, preparing meals, shopping, managing finances, etc.?: No Are you currently unemployed and looking for a job?: No Are you interested in more education?: No Please select the resources that you would like help with: None Currently or been in a relationship where the following occur: No concerns reported THRIVE Score: 0 AUDIT C Alcohol Use Questionnaire (AUDIT-C) 1. How often do you have a drink containing alcohol?: Never 3. How often do you have six or more drinks on one occasion?: Never Total Score: 0 Score Reviewed/Action Taken: No MARCY-7 AMB Questionnaire MARCY-7 Date MARCY - 7 assessed: 01/07/23 Feeling nervous, anxious, or on edge: 0 = Not at all Not being able to stop or control worryin = Not at all Worrying too much about different things: 0 = Not at all Trouble relaxin = Not at all Being so restless that it is hard to sit still: 0 = Not at all Becoming easily annoyed or irritable: 0 = Not at all Feeling afraid as if something awful might happen: 0 = Not at all Total MARCY-7 score (0-4 normal; 5-9 mild; 10-14 moderate; 15-21 severe): 0 Source: Developed by Drs. Kota Davis, Lesli Macdonald, Dallin Keller and colleagues, with an educational yohana from [employer]. MARCY-7 Assessment Billing MARCY-7 Assessment Tool: MARCY-7 Assessment 13291 Review of Systems Const All systems reviewed & are unremarkable except as noted in HPI and below Eyes Reports no additional complaints, Denies change in vision and Denies other visual disturbances Card Denies chest pain at rest, Denies chest pain with activity, Denies edema, Denies irregular heart rhythm, Denies claudication, Denies dyspnea, Denies dyspnea on exertion, Denies orthopnea, Denies paroxysmal nocturnal dyspnea and Denies slow heart rate Resp Denies cough, Denies dyspnea and Denies dyspnea on exertion Neuro Denies behavioral changes and Denies lack of coordination Psych Denies behavioral changes Physical exam (Primary Care) Vital Signs: Last Vital Signs BP 124/80 08/12/24 07:25 BMI result Body Mass Index 27.1 BMI Assessment/Plan discussion: High BMI High, discussed plan: lifestyle, weight reduction, dietary and physical activity Tobacco/Smoking Status: Tobacco use Status Tobacco use date assessed 08/12/24 08/12/24 07:27 Patient Tobacco Use Status Never used Tobacco 08/12/24 07:27 e-Cigarette/Vaping Use Never Used 08/12/24 07:27 PHQ-9: PHQ-9 Score PHQ-9: Total score 0 08/12/24 07:27 Depression Screening Interpretation: Negative Thrive Assessment: Date of Thrive Assessment Date Thrive assessed 08/10/24 08/12/24 07:27 Currently or been in a relationship where the following occur: No concerns reported HENMT Head: Yes normal to inspection, Yes normocephalic and Yes atraumatic Ears: external ears normal Eyes General: appearance normal, both eyes and all related structures Eyelids: Yes eyelids normal Conjunctivae: conjunctivae normal Neck Neck: Yes normal visual inspection and Yes supple Resp Effort & Inspection: normal respiratory effort Auscultation: clear to auscultation bilaterally Cardio Jugular venous distension: no JVD Rate: regular rate Rhythm: regular rhythm Heart sounds: S1 normal heart sound present and S2 normal heart sound present GI Inspection: Yes normal to inspection Palpation (GI): Soft to palpation and nontender Auscultation: normal bowel sounds Skin General skin exam: no rashes or lesions noted Neuro General: no focal motor deficits Extrem General: Yes full ROM Psych Appearance: grossly normal Office Procedures Flu Questionnaire Does the patient have a severe egg allergy?: No Immunizations Fluarix Triv [id number] (PF) 45 mcg (15 mcg x 3)/0.5 mL IM syringe Performing Provider: Blaire Simpson MD Performing [facility] [place] [facility] Documented (not given) by: JUAN C Vance on 08/12/24 07:36 Reason Not Given: Patient Refused Coding Level of Care Code Est Pt Prev Care 40-64y(10457) Diagnoses Physical exam Z00.00 Additional Codes PHQ-9 - 25870 - PHQ-9 Billing: Yes ([id number]) MARCY-7 Assessment Billing - MARCY-7 Assessment Tool: MARCY-7 Assessment 24431 ([id number]) Time Spent (min) 30 Assessment & Plan Assessment & Plan (1) Physical exam: Code(s): Z00.00 - Encounter for general adult medical examination without abnormal findings Category: Medical Plan: Repeat in a year. Orders: Orders Influenza [id number] Immunization Today Z23 - Encounter for immunization Comprehensive [place]. Panel Fast 6 Months Z00.00 - Encounter for general adult medical examination without abnormal findings
[2024-08-12 07:25] VITALS: BP 124/80; BMI 27.1
== END 2024-08-12 08:02 | disposition home or self-care (01) ==
LOC: HO.HMCH 07:21
PROVIDERS: PCP Internal Medicine; Visit Provider Internal Medicine
DX: Z23 Encounter for immunization (principal); Z00.00 Encounter for general adult medical examination without abnormal findings

== ENCOUNTER → 2024-08-12 07:20 | Outpatient (BNVA) | payer OTHER, SELFPAY | PROVIDERS: PCP Internal Medicine; Visit Provider Internal Medicine | DX: Z00.00 Encounter for general adult medical examination without abnormal findings (principal); Z28.21 Immunization not carried out because of patient refusal | CPT/HCPCS: 90471; 96127 ==

== ENCOUNTER 2025-02-08 07:23 | Outpatient (REF) | payer OTHER, SELFPAY ==
--- OUTSIDE RECORDS SUMMARY | 2025-02-08 07:26 | XMS_ITS | Continuity of Care Document ---
Author Organization [facility] Address [address] [place] [address] [address] [place] [address] Phone Care Team Providers Care Electrotherapist Name Role Phone Mariano ARTEAGA, GRACE, Kota [...] Providers Copied on Encounter [facility], [address] [place] [address] [address], [place], [id number], [place] tel:[phone] CVR - [place] Nevus, non-neoplast ic 4 Mariano ARTEAGA, GRACE, ABDIAS Escudero. [address] [facility] [address], [place], [place], [id number] , [place]. tel:[phone] [facility], [address] [place] [address] Dr Segura [address], [place], [id number], [place] tel:[phone] CVR - [place] - [place] Nevus, non-neoplast ic 4 Mollitor THOMPSON Wilson . [address] [place] [address], [address], [place], [place], [id number] , [place]. tel:[phone] [place] [facility], [address] [place] [address] [address], [place], [id number], [place] tel:[phone] CVR - [place] Nevus, non-neoplast ic 3 Yan ARTEAGA FACS T [facility] Aida Smallwood. [facility], [address], [place], [address], [place]. tel:[phone] Referring Provider: Aida Heredia MD FACS T [facility], [address] [place] [address] Suite [facility], [facility] [place], [address]. tel:[phone] [place] [facility], [address] [place] [address] [address], [place], [id number], [place] tel:[phone] [place] Body mass index (BMI) 31.0-31.9, adultSpider Veins - (Telangiecta jeff) 3 Yan ARTEAGA FACS T [facility] Aida Smallwood. [address] [place] [address], Suite [facility], [place], [address], [place]. [phone] Referring Provider: Aida Heredia MD FACS T [facility], [address] [place] [address] Suite [facility], [facility] [place], [address]. tel:[phone] [place] [facility], [address] [place] [address] Dr [address], [place], [id number], [place] tel:[phone] CVR - [place] Spider Veins - (Telangiecta jeff) 3 Yan ARTEAGA FACS T [facility] Aida Smallwood. [address] [place] [address], [address], [place], [address], [place]. tel:[phone] Referring Provider: Aida Heredia MD FACS RVT [facility], [address] [place] [address] Suite [facility], [facility] [place], [address]. tel:[phone] Family History Family Member Type Diagnosis Age At Onset No Information Payers Payer name Insurance type Covered republican ID Jo Ann beckford(s) Self Pay 09 [...]
[2025-02-08 11:04] LABS: Alanine Aminotransferase 24 U/L (0-31); Albumin Level 4.1 g/dL (3.5-5.0); Alkaline Phosphatase 85 U/L (39-117); Anion Gap 11 (12-20); Aspartate Amino Transferase 30 U/L (5-31); Bilirubin Total 0.7 mg/dL (0.0-1.0); Blood Urea Nitrogen 19 mg/dL (9-16); Calcium 8.8 mg/dL (8.4-10.2); Carbon Dioxide 24 mmol/L (22-29); Chloride 110 mmol/L (96-108); Estimated Glomerular Filt Rate > 60; Glucose Fasting 96 mg/dL (60-99); Magnesium 2.1 mg/dL (1.6-2.6); Potassium 3.9 mmol/L (3.3-5.1); Sodium 141 mmol/L (135-145); Total Protein 6.9 g/dL (6.5-8.0)
[2025-02-08 11:22] LABS: Vitamin D 25-OH Total 48.5 ng/mL (>30)
[2025-02-09 09:18] LABS: CA-125 6 U/mL (<35)
== END 2025-02-08 07:24 | disposition home or self-care (01) ==
LOC: HO.HMGCLDS 07:23
PROVIDERS: PCP Internal Medicine; Visit Provider Internal Medicine
DX: Z00.00 Encounter for general adult medical examination without abnormal findings (principal); E55.9 Vitamin D deficiency, unspecified; Z80.41 Family history of malignant neoplasm of ovary
CPT/HCPCS: 36415; 80053; 82306; 83735; 86304

== ENCOUNTER 2025-02-10 07:49 | Outpatient (AMB) | payer OTHER, SELFPAY ==
--- NOTE | 2025-02-10 07:51 | MHC.PC.OV ---
Vital Signs 02/10/25 07:55 Height 5 ft 3 in Weight 165 lb BMI 29.2 BP 114/72 Blood Pressure Location Lt brachial Position Sitting Intake Visit Reasons: follow up Intake Note: Patient here for a follow up Museum Attendant Required: No Accompanied by: Self / Same As Patient Allergies Cortisone Allergy (Intermediate, Verified 02/10/25 08:10) rash/itchy, rash Medication List - Last Reconciled 02/10/25 by Blaire Simpson MD omeprazole 20 mg PO DAILY Tobacco use date assessed: 02/10/25 Dental Screening Dental Screen Date: 02/10/25 Did you have a dental visit in the last 12 months?: Yes Did you have a dental problem in the last 6 months where you did not have access to dental care?: No Was dental information given to patient?: Patient has dentist HPI HPI Comments History of Present Illness Details The patient is a 59-year-old female presenting for follow up on GERD. She plans to receive her Shingrix vaccine against shingles, knowing its potential fatigue-inducing effects. Recent diagnoses and screenings show an elevated chloride level and well-managed liver function, diabetes, and cholesterol levels. Regular magnesium levels indicate good control over her GERD treatment. Routine mammograms and Pap smears are properly maintained. She plans surgery in October following an ultrasound. The patient routinely manages her weight and pool maintenance challenges. Preventive tests and care address potential health issues, ensuring wellness and effective maintenance strategies. She has nonalcoholic fatty liver disease but her liver enzymes are normal. [facility] Medical History Class 1 obesity with body mass index (BMI) of 33.0 to 33.9 in adult Class 1 obesity with body mass index (BMI) of 32.0 to 32.9 in adult Class 1 obesity with body mass index (BMI) of 31.0 to 31.9 in adult Screening for osteoporosis Family history of ovarian cancer Transaminitis GERD (gastroesophageal reflux disease) Abnormal finding on imaging Surgical History History of endoscopy History of colonoscopy History of carpal tunnel surgery of right wrist History of carpal tunnel surgery of left wrist History of D&C History of breast lump/mass excision Family History Father CVD (cardiovascular disease) CHF (congestive heart failure) Aortic stenosis Mother Ovarian cancer Diabetes Maternal Uncle Colon cancer Maternal Aunt Cancer Family/Other Breast cancer Ovarian cancer Pancreatic cancer Social History Housing: House Alcohol intake: never Patient Tobacco Use Status: Never used Tobacco e-Cigarette/Vaping Use: Never Used Second Hand Smoke Exposure: No service: No Current occupational status: employed Current occupational exposures/hazards: No Cognitive needs: No Hearing needs: No Vision needs: Yes Questionnaire PHQ-9 Over the last 2 weeks, how often have you been bothered by any of the following problems? 1. Little interest or pleasure in doing things: not at all 2. Feeling down, depressed, or hopeless: not at all 3. Trouble falling or staying asleep, or sleeping too much: not at all 4. Feeling tired or having little energy: not at all 5. Poor appetite or overeating: not at all 6. Feeling bad about yourself - or that you are a failure or have let yourself or your family down: not at all 7. Trouble concentrating on things, such as reading the newspaper or watching television: not at all 8. Moving or speaking so slowly that other people could have noticed. Or the opposite - being so fidgety or restless that you have been moving around a lot more than usual: not at all 9. Thoughts that you would be better off or of hurting yourself in some way: not at all Total score: 0 Depression Screening Interpretation: Negative Depression Screening Done: Yes 61452 - PHQ-9 Billing: Yes Source: Developed by Drs. Kota Davis, Lesli Macdonald, Dallin Keller and colleagues, with an educational yohana from [employer]. Thrive Questionnaire Date Thrive assessed: 02/10/25 I am a: Patient What is your living situation today?: I have a steady place to live Within the past 12 months, did the food you bought not last and you didn't have the money to get more?: Never true Within the past 12 months, did you worry whether your food would run out before you got money to buy more?: Never true Do you have trouble paying for medicines?: No Do you have trouble getting transportation to medical appointments?: No Do you have trouble paying your heating and electricity bill?: No Do you have trouble taking care of your child, family member or friend?: No Do you have trouble with day-to-day activities such as bathing, preparing meals, shopping, managing finances, etc.?: No Are you currently unemployed and looking for a job?: No Are you interested in more education?: No Please select the resources that you would like help with: None Currently or been in a relationship where the following occur: No concerns reported THRIVE Score: 0 AUDIT C Alcohol Use Questionnaire (AUDIT-C) 1. How often do you have a drink containing alcohol?: Never Total Score: 0 Score Reviewed/Action Taken: No MARCY-7 AMB Questionnaire MARCY-7 Date MARCY - 7 assessed: 02/10/25 Feeling nervous, anxious, or on edge: 0 = Not at all Not being able to stop or control worryin = Not at all Worrying too much about different things: 0 = Not at all Trouble relaxin = Not at all Being so restless that it is hard to sit still: 0 = Not at all Becoming easily annoyed or irritable: 0 = Not at all Feeling afraid as if something awful might happen: 0 = Not at all Total MARCY-7 score (0-4 normal; 5-9 mild; 10-14 moderate; 15-21 severe): 0 Source: Developed by Drs. Kota Davis, Lesli Macdonald, Dallin Keller and colleagues, with an educational yohana from [employer]. MARCY-7 Assessment Billing MARCY-7 Assessment Tool: MARCY-7 Assessment 94190 Review of Systems Const All systems reviewed & are unremarkable except as noted in HPI and below Card Denies chest pain at rest, Denies chest pain with activity, Denies edema, Denies irregular heart rhythm, Denies claudication, Denies dyspnea, Denies dyspnea on exertion, Denies orthopnea, Denies paroxysmal nocturnal dyspnea and Denies slow heart rate Resp Denies cough, Denies dyspnea and Denies dyspnea on exertion GI Denies abdominal pain, Denies change in bowel habits, Denies excessive flatus, Denies nausea and Denies vomiting Physical exam (Primary Care) Vital Signs: Last Vital Signs BP 114/72 02/10/25 07:55 BMI result Body Mass Index 29.2 Tobacco/Smoking Status: Tobacco use Status Tobacco use date assessed 02/10/25 02/10/25 07:59 Patient Tobacco Use Status Never used Tobacco 02/10/25 07:53 e-Cigarette/Vaping Use Never Used 02/10/25 07:53 PHQ-9: PHQ-9 Score PHQ-9: Total score 0 02/10/25 07:53 Depression Screening Interpretation: Negative Thrive Assessment: Date of Thrive Assessment Date Thrive assessed 02/10/25 02/10/25 07:53 Currently or been in a relationship where the following occur: No concerns reported Resp Effort & Inspection: normal respiratory effort Auscultation: clear to auscultation bilaterally Cardio Jugular venous distension: no JVD Rate: regular rate Rhythm: regular rhythm Heart sounds: S1 normal heart sound present and S2 normal heart sound present Extrem General: Yes full ROM Coding Level of Care Code Est Pt Level 3 (06954) Complex EM visit Add On G2211 Diagnoses Gastroesophageal reflux disease without esophagitis K21.9 Esophagitis presence: without esophagitis Transaminitis R74.01 Family history of ovarian cancer Z80.41 Additional Codes PHQ-9 - 80398 - PHQ-9 Billing: Yes ([id number]) MARCY-7 Assessment Billing - MARCY-7 Assessment Tool: MARCY-7 Assessment 67039 ([id number]) Time Spent (min) 19 Assessment & Plan Assessment & Plan (1) GERD (gastroesophageal reflux disease): Code(s): K21.9 - Gastro-esophageal reflux disease without esophagitis Category: Medical Qualifiers: Esophagitis presence: without esophagitis Qualified Code(s): K21.9 - Gastro-esophageal reflux disease without esophagitis (2) Transaminitis: Comment: INITIAL LABS 12/28/21 WBC 8.0 Hgb 13.8 Hct 40.2 Plt Count 231 Estimated GFR > 60 Total Bilirubin 0.9 AST 24 ALT 35 H Alkaline Phosphatase 82 Hepatitis A IgM Ab Nonreactive Hep Bs Antigen Negative Hep Bs Antibody NONREACTIVE Hep B Core Total Ab Nonreactive Hepatitis C Ab (EIA) Nonreactive US WITH ELASTROGRAPHY F2 NEEDS FERRITIN, AUTOIMM WORK UP ETC CURRENT LABS US ABD 10/2020 IMPRESSION: 1. Mild hepatomegaly with increased liver echogenicity. No focal mass seen. ? 2. Slightly lobulated lower pole left kidney. No echogenic renal stones. No echogenic gallstones. Code(s): R74.01 - Elevation of levels of liver transaminase levels Category: Medical (3) Family history of ovarian cancer: Code(s): Z80.41 - Family history of malignant neoplasm of ovary Category: Medical Plan The patient should continue with the scheduled Shingrix vaccination when feasible, being prepared for potential fatigue. There is reassurance about the persistent elevated chloride level, which remains non-significant. Magnesium levels are satisfactory with current supplementation habits. Liver function tests reflect effective management of fatty liver disease, and recent cancer marker checks are within normal limits, suggesting no changes to current procedures. Upcoming preventive screenings for cholesterol, uterine health, malignant potential, and weight management are due. Ensuring compliance with pending medical procedures and screenings will contribute to ongoing health and wellness. Patient was informed and verbally consented to the use of an ambient scribe for clinic note documentation during this visit. During the consultation, I discussed the importance of receiving the Shingrix vaccine, cautioning about potential fatigue. We talked about her blood work, where elevated chloride levels and the status of her magnesium and liver function were covered, providing reassurance about no significant deviations. We addressed the patient's health screenings and upcoming surgery, underscoring cardiovascular, gastroenterological, and cancer marker wellness planning. We confirmed normal liver functions and safe magnesium levels despite daily omeprazole intake. Consistent with plans, we discussed follow-up testing in August for cholesterol, which has remained stable, alongside managing her weight and ongoing efforts in preventive care. Her routine approach towards pool and pet management focuses on health issues that could arise seasonally. Patient Instructions: - Proceed with the Shingrix vaccination according to your schedule. - Monitor for fatigue after receiving the Shingrix vaccine. - Maintain current magnesium supplementation routine. - Proceed with scheduled mammograms and other recommended screenings as discussed. - Focus on bringing your weight down through regular activity and diet control. - Continue monitoring chloride levels as instructed in future blood tests. - Plan for future screenings including liver function tests along with routine cholesterol checks. - Ensure preparations for upcoming planned uterine surgery. - Attend any scheduled follow-up appointments with recommended care systems. - Stick to active lifestyle choices for health maintenance, including regular pool maintenance and gardening.
--- OUTSIDE RECORDS SUMMARY | 2025-02-10 07:52 | XMS_ITS | Continuity of Care Document ---
Author Organization [facility] Address [address] [place] [address] [address] [place] [address] Phone Care Team Providers Care Radiation Officer Name Role Phone Mariano ARTEAGA, GRACE, Kota [...] Providers Copied on Encounter [facility], [address] [place] [address] [address], [place], [id number], [place] tel:[phone] CVR - [place] - [place] Nevus, non-neoplast ic 4 Mariano ARTEAGA, GRACE, ABDIAS Escudero. [address] [facility] [address], [place], [place], [id number] , [place]. tel:[phone] [facility], [address] [place] [address] Dr Segura [address], [place], [id number], [place] tel:[phone] CVR - [place] Nevus, non-neoplast ic 4 Mollitor THOMPSON Wilson . [address] [place] [address], [address], [place], [place], [id number] , [place]. tel:[phone] [place] [facility], [address] [place] [address] [address], [place], [id number], [place] tel:[phone] CVR - [place] Nevus, non-neoplast ic 3 Yan ARTEAGA FACS T [facility] Aida Smallwood. [facility], [address], [place], [address], [place]. tel:[phone] Referring Provider: Aida Heredia MD FACS T [facility], [address] [place] [address] Suite [facility], [facility] [place], [address]. tel:[phone] [place] [facility], [address] [place] [address] 1000[address], [place], [id number], [place] tel:[phone] CVR - [place] - [place] Body mass index (BMI) 31.0-31.9, adultSpider Veins - (Telangiecta jeff) 3 Yan ARTEAGA FACS T [facility] Aida Smallwood. [address] [place] [address], Suite [facility], [place], [address], [place]. [phone] Referring Provider: Aida Heredia MD FACS T [facility], [address] [place] [address] Suite [facility], [place], [address]. tel:[phone] [place] [facility], [address] [place] [address] Dr [address], [place], [id number], [place] tel:[phone] CVR - [place] - [place] Spider Veins - (Telangiecta jeff) 3 Yan ARTEAGA FACS T [facility] Aida Smallwood. [address] [place] [address], [address], [place], [address], [place]. tel:[phone] Referring Provider: Aida Heredia MD FACS RVT [facility], [address] [place] [address] Suite [facility], [place], [address]. tel:[phone] Family History Family Member Type Diagnosis Age At Onset No Information Payers Payer name Insurance type Covered democrat ID Jo Ann beckford(s) Self Pay 09 [...]
[2025-02-10 07:55] VITALS: BP 114/72; BMI 29.2
== END 2025-02-10 08:30 | disposition home or self-care (01) ==
LOC: HO.HMCH 07:49
PROVIDERS: PCP Internal Medicine; Visit Provider Internal Medicine
DX: K21.9 Gastro-esophageal reflux disease without esophagitis (principal); R74.01 Elevation of levels of liver transaminase levels; Z80.41 Family history of malignant neoplasm of ovary

== ENCOUNTER → 2025-02-10 07:49 | Outpatient (BNVA) | payer OTHER, SELFPAY | PROVIDERS: PCP Internal Medicine; Visit Provider Internal Medicine | DX: K21.9 Gastro-esophageal reflux disease without esophagitis (principal); R74.01 Elevation of levels of liver transaminase levels; Z80.41 Family history of malignant neoplasm of ovary | CPT/HCPCS: 96127 ==

== ENCOUNTER 2025-08-15 06:41 | Outpatient (REF) | payer OTHER, SELFPAY ==
--- OUTSIDE RECORDS SUMMARY | 2023-11-26 03:15 | XMS_ITS | Continuity of Care Document ---
Author Organization [facility] Address [address] [place] [address] [address] [place] [phone] Phone Care Team Providers Care Claim Specialist Name Role Phone Mariano ARTEAGA, GRACE, Kota [...] Providers Copied on Encounter [facility], [address] [place] [address] [address], [place], [id number], [place] tel:[phone] CVR - [place] - [place] Nevus, non-neoplast ic 4 Mariano ARTEAGA, GRACE, ABDIAS Escudero. [address] [facility] [address], [place], [place], [id number] , [place]. tel:[phone] [facility], [address] [place] [address] Dr Segura [address], [id number], [place] tel:[phone] CVR - [place] - [place] Nevus, non-neoplast ic 4 Mollitor THOMPSON Wilson . [address] [place] [address], [address], [place], [place], [id number] , [place]. tel:[phone] [facility], [address] [place] [address] [address], [place], [id number], [place] tel:[phone] CVR - [place] Nevus, non-neoplast ic 3 Yan ARTEAGA FACS T [facility] Aida Smallwood. [facility], [address], [place], [address], [place]. tel:[phone] Referring Provider: Aida Heredia MD FACS T [facility], [address] [place] [address] Suite [facility], [place], [address]. tel:[phone] [facility], [address] [place] [address] [address], [place], [id number], [place] tel:[phone] CVR - [place] Body mass index (BMI) 31.0-31.9, adultSpider Veins - (Telangiecta jeff) 3 Yan ARTEAGA FACS T [facility] Aida Smallwood. [address] [place] [address], Suite [facility], [place], [address], [place]. [phone] Referring Provider: Aida Heredia MD FACS T [facility], [address] [place] [address] Suite [facility], [facility] [place], [address]. tel:[phone] [facility], [address] [place] [address] Dr [address], [place], [id number], [place] tel:[phone] CVR - [place] Spider Veins - (Telangiecta jeff) 3 Yan ARTEAGA FACS T [facility] Aida Smallwood. [address] [place] [address], [address], [place], [address], [place]. tel:[phone] Referring Provider: Aida Heredia MD FACS [facility], [address] [place] [address] Suite [facility], [facility] [place], [address]. tel:[phone] Family History Family Member Type Diagnosis Age At Onset No Information Payers Payer name Insurance type Covered alliance party ID Jo Ann beckford(s) Self Pay [...]
--- OUTSIDE RECORDS SUMMARY | 2025-08-15 06:43 | XMS_ITS | Patient Health Record ---
Author [facility] Address [address] [place] [address] Care Team Providers Care Marine Extension Agent Name Role Phone Maksim ARTEAGA, Blaire Primary Care Provider Unavail able Carlos Hernandez Unavailable [phone] Allergies Allergen (clinical drug ingredient) Drug/Non Drug Allergy documented on EMR Reaction Allergy Type Onset Date Status Cortisone rash Drug Allergy Active Reason For Referral No Information Medications Medication SIG (Take, Route, Frequency, Duration) Notes Start Date End Date Status Multivitamin Active Omeprazole 20 MG 1 tab Orally Once a day Active Night Splint AFO - L1930 as directed Active Social History Tobacco Use: Social History Observation Description Date Details (start date - stop date) Never Smoker NA - NA Tobacco Use/Smoking Question Answer Notes Are you a: nonsmoker Additional Findings: Tobacco Non-User Current no n-smoker Alcohol Screen Question Answer Notes Did you have a drink containing alcohol in the p ast year? No Points 0 Interpretation Negative Tobacco use other than smoking: Question Answer Notes Are you an other tobacco user? No Problems Problem Type SNOMED Code ICD Code Onset Dates Problem Status W/U Status Risk Notes Problem Acquired hallux valgus (58674599) Hallux valgus (acquired), right foot (M20.11) Active confirmed Problem Acquired hammer toe of right foot (1069109821401 105) Other hammer toe(s) (acquired), right foot (M20.41) Active confirmed Problem Acquired hammer toe of left foot (5631108905085 103) Other hammer toe(s) (acquired), left foot (M20.42) Active confirmed Plan Of Treatment Pending Test Test Name Order Date X ray : Foot, right 2V 09/03/2017 X ray : Foot, left 3V 09/10/2019 X ray : Foot, left 3V 09/13/2020 Insurance Providers Payer Name Payer Address Payer Phone Subscriber Number Group Number Insured Name Patient Relationship to Insured Coverage Start Date [facility]age End Date [facility] [address] [place], [place] [phone] [id number] Hallie Amaral Self - patient is the insured Medical (General) History Medical History History ICD Code Chicken pox Surgical History Surgery Date(Month/Year) lumpectomy benign breast endoscopy 08/17/20 colonoscopy 08/17/20 carpal tunnel surgery R 07/31/20
--- OUTSIDE RECORDS SUMMARY | 2025-08-15 06:43 | XMS_ITS | Clinical Summary ---
Author Organization [facility] Address [address] [place] [address] Care Team Providers Care Elevators Inspector Name Role Phone Unavailable Primary Care Provider Unavailabl e Source Comments PLEASE NOTE, if this patient is a minor, it may be UNLAWFUL to discuss sensitive information that is contained in these records (such as FAMILY PLANNING, MENTAL HEALTH or SUBSTANCE ABUSE) with the minor patient's parent or other person without the patient's specific authorization.[facility] Allergies Active Allergy Reactions Criticality Noted Date Comments Hydrocortisone Rash Low 03/15/2025 Social History Tobacco Use Types Packs/Day Years Used Date Smoking Tobacco: Never Assessed Comments Unknown Sex and Gender Information Value Date Recorded Sex Assigned at Female 03/15/2025 12:56 PM PDT Legal Sex Female 12:49 PM PDT Gender Identity Not on file Sexual Orientation Not on file Last Filed Vital Signs Vital Sign Reading Time Taken Comments Blood Pressure 135/89 03/15/2025 4:13 PM EDT Pulse 71 03/15/2025 4:13 PM EDT Temperature 36.9 C (98.4 F) 03/15/2025 4:13 PM EDT Respiratory Rate - - Oxygen Saturation 97% 03/15/2025 4:13 PM EDT Inhaled Oxygen Concentration - - Weight 76 kg (167 lb 9.6 oz) 03/15/2025 4:13 PM EDT Height 158.8 cm (5' 2.5 ) 03/15/2025 4:13 PM EDT Body Mass Index 30.17 03/15/2025 4:13 PM EDT Plan of Treatment Health Maintenance Due Date Last Done Comments Anxiety Screening 1967 Diabetes Screening 1967 HPV Screening (self-collect) 1967 HPV Screening 1967 Hepatitis C Screening 1967 Lipid Screening 1967 Pap + HPV 1967 Tobacco Screening 1967 HIV Screening 1982 Cervical Cancer Screening 1988 Pap Smear 1988 Breast Cancer Screening (Mammogram) 2007 CT Colonography 2012 Colonoscopy 2012 Colorectal Cancer Screening 2012 FIT/gFOBT 2012 Fecal DNA 2012 Flexible Sigmoidoscopy 2012 Imm-Pneumococcal 50+ (1 of 1 - PCV) 2017 Alcohol and Drug Screen 10/06/2024 Depression Annual Screen 10/06/2024 [id number] (2024- season) 2025 10/17/2023, 08/09/2022, 03/22/2022, Additional history exists Imm-Influenza (#1) 2025 Hypertension Screening (#1) 03/15/2026 Imm-DTaP/Tdap/Td (3 - Td or Tdap) 06/07/2030 020, 07/31/2010 Imm-Hepatitis B Completed 07/02/2022, 01/05, 01/02/2022 Imm-Zoster, Recombinant Completed 02/10/2025, 10/08 Cervical Ablation/Cold-Knife Conization Discontinued Cervical Cryotherapy Discontinued Colposcopy Discontinued Excision/Leep Discontinued HPV Genotyping Discontinued Vaginal Pap Discontinued Vulvoscopy Discontinued Insurance [employer]
[2025-08-15 07:07] LABS: MANUAL DIFF FLAG NO
[2025-08-15 07:43] LABS: Hematocrit 38.8 % (37.0-47.0); Hemoglobin 13.4 g/dl (12.0-16.0); Imm Gran Abs Auto 0.04 X10*3/uL (0.00-0.03); Imm Gran Pct Auto 0.5 % (0.0-0.4); Lymphocytes Absolute Auto 2.6 X10*3/uL (1.2-4.9); Mean Corpuscular HGB Conc 34.5 g/dl (31.0-35.0); Mean Corpuscular Hemoglobin 30.0 pg (27.0-33.0); Mean Corpuscular Volume 87.0 fL (80.0-98.0); NRBC Abs Auto 0.000 X10*3/uL (0.0-0.012); NRBC Pct Auto 0.0 /100WBC (0.0-0.2); Platelet Count 242 X10*3/uL (160-400); Red Blood Count 4.46 X10*6/uL (4.20-5.50); White Blood Count 8.4 X10*3/uL (4.8-10.8)
[2025-08-15 07:59] LABS: Alanine Aminotransferase 28 U/L (0-31); Albumin Level 4.3 g/dL (3.5-5.0); Alkaline Phosphatase 89 U/L (39-117); Anion Gap 13 (12-20); Aspartate Amino Transferase 33 U/L (5-31); Blood Urea Nitrogen 19 mg/dL (9-16); Calcium 8.9 mg/dL (8.4-10.2); Carbon Dioxide 25 mmol/L (22-29); Chloride 108 mmol/L (96-108); Cholesterol 171 mg/dL (<200); Estimated Glomerular Filt Rate > 60; HDL Cholesterol 58 mg/dL (>40); Potassium 4.2 mmol/L (3.3-5.1); Sodium 142 mmol/L (135-145); Total Protein 6.9 g/dL (6.5-8.0); Triglycerides 43 mg/dL (<150)
[2025-08-17 14:04] LABS: CA-125 7 U/mL (<35)
== END 2025-08-15 06:42 | disposition home or self-care (01) ==
LOC: HO.LAB 06:41
PROVIDERS: PCP Internal Medicine; Visit Provider Internal Medicine
DX: K21.9 Gastro-esophageal reflux disease without esophagitis (principal); E78.5 Hyperlipidemia, unspecified; R74.01 Elevation of levels of liver transaminase levels; Z80.41 Family history of malignant neoplasm of ovary
CPT/HCPCS: 36415; 80053; 80061; 85025; 86304

== ENCOUNTER 2025-08-18 07:23 | Outpatient (AMB) | payer OTHER, SELFPAY ==
--- OUTSIDE RECORDS SUMMARY | 2023-11-26 03:15 | XMS_ITS | Continuity of Care Document ---
Author Organization [facility] Address [address] [place] [address] [address] [place] [address] Phone Care Team Providers Care Undercover Agent Name Role Phone Mariano ARTEAGA, GRACE, Kota CALERO Unavailable U navailable Allergies, Adverse Reactions, Alerts Substance Reaction Status Criticality cortisone Active No Information Medications Medication Instructions Dosage Effective Dates (start - stop) Status Comments omeprazole 20 mg capsule,delayed release - Active Procedures Procedure Date No Charge For Services Sngl/mx Inj Scleros-veins; Herbie 24 No Charge For Services No Charge For Services Sngl/mx Inj Scleros-veins; Herbie Advance Directives Directive Yes / No Effective Date File Name No Information Encounters Encounter Description Practice Location Reason(s) For Visit Diagnoses Date Provider Providers Copied on Encounter [facility], [address] [place] [address] [address], [place], [id number], [place] tel:[phone] CVR - [place] Nevus, non-neoplast ic 4 Mariano ARTEAGA, GRACE, ABDIAS Escudero. [address] [facility] [address], [place], [place], [id number] , [place]. tel:[phone] [facility], [address] [place] [address] Dr Segura [address], [id number], [place] tel:[phone] CVR - [place] Nevus, non-neoplast ic 4 Mollitor THOMPSON Wilson . [address] [place] [address], [address], [place], [place], [id number] , [place]. tel:[phone] [facility], [address] [place] [address] [address], [place], [id number], [place] tel:[phone] CVR - [place] Nevus, non-neoplast ic 3 Yan ARTEAGA FACS T [facility] Aida Smallwood. [facility], [address], [place], [address], [place]. tel:[phone] Referring Provider: Aida Heredia MD FACS T [facility], [address] [place] [address] Suite [facility], [place], [address]. tel:[phone] [facility], [address] [place] [address] [address], [place], [id number], [place] tel:[phone] CVR [place] Body mass index (BMI) 31.0-31.9, adultSpider Veins - (Telangiecta jeff) 3 Yan ARTEAGA FACS T [facility] Aida Smallwood. [address] [place] [address], Suite [facility], [place], [address], [place]. [phone] Referring Provider: Aida Heredia MD FACS T [facility], [address] [place] [address] Suite [facility] [place], [address]. tel:[phone] [facility], [address] [place] [address] Dr [address], [place], [id number], [place] tel:[phone] CVR - [place] Spider Veins - (Telangiecta jeff) 3 Yan ARTEAGA FACS T [facility] Aida Smallwood. [address] [place] [address], [address], [place], [address], [place]. tel:[phone] Referring Provider: Aida Heredia MD FACS [facility], [address] [place] [address] Suite [facility], [place], [address]. tel:[phone] Family History Family Member Type Diagnosis Age At Onset No Information Payers Payer name Insurance type Covered constitution party ID Jo Ann beckford(s) Self Pay 09 Social History Type Description Quantity Date Captured Comments Alcohol Use Details Unknown Caffeine Use Details Unknown Tobacco Use Status Current non-smoker Smoking Status Never smoker Non-Smoking Tobacco Use Details : No Details Available : No Details Available Sex Female Chief Complaint And Reason For Visit No Information Reason For Referral Reason For Referral No Information Plan Of Treatment Date Type Action Status Goal Dietary management education , guidance, and counseling completed History Of Present Illness Encounter Date Complaint History Of Prese nt Illness No Information Functional Status Date Functional Assessmen t No Information Instructions Date Instruction Additional Infor mation Dietary management e ducation, guidance, and counseling Related to Body mass index [BMI] 31.0-31.9, adult Assessments Type Assessment Date assessment Nevus, non-neoplastic 4 Patient Care Teams Name Effective Dates (start - stop) Status Members No Information
--- OUTSIDE RECORDS SUMMARY | 2025-08-18 07:26 | XMS_ITS | Patient Health Record ---
Author Organization [facility] Address [address] [place] [address] Care Team Providers Care Knitter Operator Name Role Phone Maksim ARTEAGA, Blaire Primary Care Provider Unavail able Carlos Hernandez Unavailable [phone] Allergies Allergen (clinical drug ingredient) Drug/Non Drug [...] Status Risk Notes Problem Acquired hallux valgus (10625407) Hallux valgus (acquired), right foot (M20.11) Active confirmed Problem Acquired hammer toe of right foot (4919382963601 105) Other hammer toe(s) (acquired), right foot (M20.41) Active confirmed Problem Acquired hammer toe of left foot (1715665540690 103) Other hammer toe(s) (acquired), left foot [...] Insured Coverage Start Date Coverage End Date [facility] [address] [place], [place] [phone] [id number] Hallie Amaral Self - patient is the insured Medical (General) History Medical History History ICD Code Chicken pox Surgical History Surgery Date(Month/Year) lumpectomy benign breast endoscopy 08/17/20 colonoscopy 08/17/20 carpal tunnel surgery R 07/31/20
--- OUTSIDE RECORDS SUMMARY | 2025-08-18 07:26 | XMS_ITS | Clinical Summary ---
Author Organization [facility] Address [address] [place] [address] Care Team Providers Care Tool Dispatcher Name Role Phone Unavailable Primary Care Provider [...] Drug Screen 10/06/2024 Depression Annual Screen 10/06/2024 [id number] (2024- season) 2025 10/17/2023, 08/09/2022, 03/22/2022, Additional [...]
[2025-08-18 07:38] VITALS: BP 124/88; PULSE 65; O2SAT 98; BMI 30.5
--- NOTE | 2025-08-18 07:38 | MHC.PC.OV ---
Vital Signs 08/18/25 07:38 Height 5 ft 3 in Weight 172 lb BMI 30.5 BP 124/88 Blood Pressure Location Lt brachial Position Sitting Pulse 65 Pulse Source Pulse Oximeter Pulse Oximetry (%) 98 Oxygen Delivery Method Room Air Intake Visit Reasons: PE Medical Assistant Dermatology Required: No Accompanied by: Self / Same As Patient Allergies Cortisone Allergy (Intermediate, Verified 08/18/25 07:46) rash/itchy, rash Medication List - Last Reconciled 08/18/25 by Blaire Simpson MD omeprazole 20 mg PO DAILY Tobacco use date assessed: 02/10/25 Dental Screening Dental Screen Date: 02/10/25 HPI HPI Comments History of Present Illness Details The patient is a 59-year-old female presenting for her annual physical examination. Tdap done 2019 and next Tdap should be 2030. She declines flu vaccine. Mammogram done this year at [facility] was negative. Past surgical history is notable for bilateral carpal tunnel surgery, a dilatation and curettage (D&C), and a breast lump excision in 2016 that was a fibroadenoma. Her last colonoscopy two years ago revealed polyps, with a recommendation for a repeat study in two years; she is currently overdue for this and plans to schedule it after recovering from her hysterectomy. She denies any current rectal bleeding or other bowel issues. Family history is significant for ovarian cancer in her mother, who also had diabetes, and colon cancer in a maternal uncle. Her father had congestive heart failure, aortic stenosis, and cardiovascular disease. The patient does not smoke tobacco or consume alcohol. Her only current medication is omeprazole, and she has a known allergy to cortisone. Recent laboratory work showed a hemoglobin of 13.4, normal kidney function, random glucose of 106, total cholesterol of 171, and a normal CA-125 of 7. A liver enzyme was noted to be mildly elevated at 33, consistent with her history of fatty liver disease. The patient is undergoing her annual wellness exam. A bone density scan will be ordered as it is due. The patient is advised to complete her follow-up colonoscopy, for which she is overdue, after she recovers from her hysterectomy. The patient declined the influenza vaccine after a discussion of its importance. The patient is undergoing her annual wellness exam. A bone density scan will be ordered as it is due. The patient is advised to complete her follow-up colonoscopy, for which she is overdue, after she recovers from her hysterectomy. The patient declined the influenza vaccine after a discussion of its importance. [facility] Medical History Class 1 obesity with body mass index (BMI) of 33.0 to 33.9 in adult Class 1 obesity with body mass index (BMI) of 32.0 to 32.9 in adult Class 1 obesity with body mass index (BMI) of 31.0 to 31.9 in adult Screening for osteoporosis Family history of ovarian cancer Transaminitis GERD (gastroesophageal reflux disease) Abnormal finding on imaging Surgical History History of endoscopy History of colonoscopy History of carpal tunnel surgery of right wrist History of carpal tunnel surgery of left wrist History of D&C History of breast lump/mass excision Family History Father CVD (cardiovascular disease) CHF (congestive heart failure) Aortic stenosis Mother Ovarian cancer Diabetes Maternal Uncle Colon cancer Maternal Aunt Cancer Family/Other Breast cancer Ovarian cancer Pancreatic cancer Social History Housing: House Alcohol intake: never Patient Tobacco Use Status: Never used Tobacco Tobacco use type: Cigarette e-Cigarette/Vaping Use: Never Used Second Hand Smoke Exposure: No service: No Current occupational status: employed Current occupational exposures/hazards: No Cognitive needs: No Hearing needs: No Vision needs: Yes Questionnaire PHQ-9 Over the last 2 weeks, how often have you been bothered by any of the following problems? 1. Little interest or pleasure in doing things: not at all 2. Feeling down, depressed, or hopeless: not at all 3. Trouble falling or staying asleep, or sleeping too much: not at all 4. Feeling tired or having little energy: not at all 5. Poor appetite or overeating: not at all 6. Feeling bad about yourself - or that you are a failure or have let yourself or your family down: not at all 7. Trouble concentrating on things, such as reading the newspaper or watching television: not at all 8. Moving or speaking so slowly that other people could have noticed. Or the opposite - being so fidgety or restless that you have been moving around a lot more than usual: not at all 9. Thoughts that you would be better off or of hurting yourself in some way: not at all Total score: 0 Depression Screening Interpretation: Negative Depression Screening Done: Yes 81871 - PHQ-9 Billing: Yes Source: Developed by Drs. Kota Davis, Lesli Macdonald, Dallin Keller and colleagues, with an educational yohana from [employer]. Thrive Questionnaire Date Thrive assessed: 02/10/25 I am a: Patient What is your living situation today?: I have a steady place to live Within the past 12 months, did the food you bought not last and you didn't have the money to get more?: Never true Within the past 12 months, did you worry whether your food would run out before you got money to buy more?: Never true Do you have trouble paying for medicines?: No Do you have trouble getting transportation to medical appointments?: No Do you have trouble paying your heating and electricity bill?: No Do you have trouble taking care of your child, family member or friend?: No Do you have trouble with day-to-day activities such as bathing, preparing meals, shopping, managing finances, etc.?: No Are you currently unemployed and looking for a job?: No Are you interested in more education?: No Please select the resources that you would like help with: None Currently or been in a relationship where the following occur: No concerns reported THRIVE Score: 0 AUDIT C Alcohol Use Questionnaire (AUDIT-C) 1. How often do you have a drink containing alcohol?: Never 3. How often do you have six or more drinks on one occasion?: Never Total Score: 0 Score Reviewed/Action Taken: No MARCY-7 AMB Questionnaire MARCY-7 Date MARCY - 7 assessed: 02/10/25 Source: Developed by Drs. Kota Davis, Lesli Macdonald, Dallin Keller and colleagues, with an educational yohana from [employer]. Review of Systems Const All systems reviewed & are unremarkable except as noted in HPI and below Card Denies chest pain at rest, Denies chest pain with activity, Denies edema, Denies irregular heart rhythm, Denies claudication, Denies dyspnea, Denies dyspnea on exertion, Denies orthopnea, Denies paroxysmal nocturnal dyspnea and Denies slow heart rate Resp Denies cough, Denies dyspnea and Denies dyspnea on exertion GI Denies abdominal pain, Denies change in bowel habits, Denies excessive flatus, Denies nausea and Denies vomiting Physical exam (Primary Care) Vital Signs: Last Vital Signs Pulse 65 08/18/25 07:38 BP 124/88 08/18/25 07:38 Pulse Ox 98 08/18/25 07:38 Oxygen Delivery Method Room Air 08/18/25 07:38 BMI result Body Mass Index 30.5 BMI Assessment/Plan discussion: High BMI High, discussed plan: lifestyle, weight reduction, dietary and physical activity Tobacco/Smoking Status: Tobacco use Status Tobacco use date assessed 02/10/25 08/18/25 07:42 Patient Tobacco Use Status Never used Tobacco 08/18/25 07:42 Tobacco use type Cigarette 08/18/25 07:42 e-Cigarette/Vaping Use Never Used 08/18/25 07:42 PHQ-9: PHQ-9 Score PHQ-9: Total score 0 08/18/25 07:51 Depression Screening Interpretation: Negative Thrive Assessment: Date of Thrive Assessment Date Thrive assessed 02/10/25 08/18/25 07:42 Currently or been in a relationship where the following occur: No concerns reported Const Orientation/consciousness: patient oriented x3 [facility] Head: Yes normal to inspection, Yes normocephalic and Yes atraumatic Ears: external ears normal Eyes General: appearance normal, both eyes and all related structures Eyelids: Yes eyelids normal Conjunctivae: conjunctivae normal Neck Neck: Yes normal visual inspection and Yes supple Resp Effort & Inspection: normal respiratory effort Auscultation: clear to auscultation bilaterally Cardio Jugular venous distension: no JVD Rate: regular rate Rhythm: regular rhythm Heart sounds: S1 normal heart sound present and S2 normal heart sound present GI Inspection: Yes normal to inspection Palpation (GI): Soft to palpation and nontender Auscultation: normal bowel sounds Skin General skin exam: no rashes or lesions noted Neuro General: patient oriented x3 and no focal motor deficits Extrem General: Yes full ROM Psych Appearance: grossly normal Coding Level of Care Code Est Pt Prev Care 40-64y(68878) Diagnoses Physical exam Z00.00 Additional Codes PHQ-9 - 21954 - PHQ-9 Billing: Yes ([id number]) Time Spent (min) 30 Assessment & Plan Assessment & Plan (1) Physical exam: Code(s): Z00.00 - Encounter for general adult medical examination without abnormal findings Category: Medical Plan Repeat in a year. Continue yearly mammograms. Schedule colonoscopy for next year. No need for Pap smears after hysterectomy. Orders: Orders ECG 12 lead EKG Today Z01.811 - Encounter for preprocedural respiratory examination XR DEXA axial skeleton Today Z78.0 - Asymptomatic menopausal state
== END 2025-08-18 08:07 | disposition home or self-care (01) ==
LOC: HO.HMCH 07:24
PROVIDERS: PCP Internal Medicine; Visit Provider Internal Medicine
DX: Z00.00 Encounter for general adult medical examination without abnormal findings (principal)

== ENCOUNTER → 2025-08-18 07:23 | Outpatient (BNVA) | payer OTHER, SELFPAY | PROVIDERS: PCP Internal Medicine; Visit Provider Internal Medicine | DX: Z00.00 Encounter for general adult medical examination without abnormal findings (principal); K21.9 Gastro-esophageal reflux disease without esophagitis; Z79.899 Other long term (current) drug therapy | CPT/HCPCS: 96127 ==

== ENCOUNTER 2025-09-08 12:15 | Outpatient (AMB) | payer OTHER, SELFPAY ==
--- NOTE | 2025-09-08 12:34 | MHC.PC.OV ---
Vital Signs 09/08/25 12:35 Height 5 ft 3 in Weight 175 lb BMI 31.0 BP 128/82 Blood Pressure Location Lt brachial Position Sitting Pulse 68 Pulse Source Pulse Oximeter Pulse Oximetry (%) 98 Oxygen Delivery Method Room Air Intake Visit Reasons: Hysterectomy 10/10 Content Designer Required: No Accompanied by: Self / Same As Patient Allergies Cortisone Allergy (Intermediate, Verified 09/08/25 12:39) rash/itchy, rash Medication List - Last Reconciled 09/08/25 by Blaire Simpson MD omeprazole 20 mg PO DAILY Tobacco use date assessed: 02/10/25 Dental Screening Dental Screen Date: 02/10/25 HPI HPI Comments History of Present Illness Details The patient is a 59 year old female presenting for a pre-operative evaluation for a planned total abdominal hysterectomy with general anesthesia. She is considered a low-risk patient for this medium-risk surgery. Her only current medication is omeprazole, and she has a known allergy to cortisone. She recently started taking vitamin C as per her nurse's recommendation before her procedure. Her surgical history is notable for prior minor surgeries including endoscopy, colonoscopy, bilateral carpal tunnel release, and a dilation and curettage (D&C). She also had a breast mass excised in 2017, which was a fibroadenoma. She has no history of complications from prior surgeries. She denies any history of chest pain or shortness of breath. An EKG was performed approximately nine years ago which was normal. Her last blood work was noted to be excellent. [facility] Medical History Class 1 obesity with body mass index (BMI) of 33.0 to 33.9 in adult Class 1 obesity with body mass index (BMI) of 32.0 to 32.9 in adult Class 1 obesity with body mass index (BMI) of 31.0 to 31.9 in adult Screening for osteoporosis Family history of ovarian cancer Transaminitis GERD (gastroesophageal reflux disease) Abnormal finding on imaging Surgical History History of endoscopy History of colonoscopy History of carpal tunnel surgery of right wrist History of carpal tunnel surgery of left wrist History of D&C History of breast lump/mass excision Family History Father CVD (cardiovascular disease) CHF (congestive heart failure) Aortic stenosis Mother Ovarian cancer Diabetes Maternal Uncle Colon cancer Maternal Aunt Cancer Family/Other Breast cancer Ovarian cancer Pancreatic cancer Social History Housing: House Alcohol intake: never Patient Tobacco Use Status: Never used Tobacco Tobacco use type: Cigarette e-Cigarette/Vaping Use: Never Used Second Hand Smoke Exposure: No service: No Current occupational status: employed Current occupational exposures/hazards: No Cognitive needs: No Hearing needs: No Vision needs: Yes Questionnaire Thrive Questionnaire Date Thrive assessed: 02/10/25 I am a: Patient What is your living situation today?: I have a steady place to live Within the past 12 months, did the food you bought not last and you didn't have the money to get more?: Never true Within the past 12 months, did you worry whether your food would run out before you got money to buy more?: Never true Do you have trouble paying for medicines?: No Do you have trouble getting transportation to medical appointments?: No Do you have trouble paying your heating and electricity bill?: No Do you have trouble taking care of your child, family member or friend?: No Do you have trouble with day-to-day activities such as bathing, preparing meals, shopping, managing finances, etc.?: No Are you currently unemployed and looking for a job?: No Are you interested in more education?: No Please select the resources that you would like help with: None Currently or been in a relationship where the following occur: No concerns reported THRIVE Score: 0 MARCY-7 AMB Questionnaire MARCY-7 Date MARCY - 7 assessed: 02/10/25 Source: Developed by Drs. Kota Davis, Lesli Macdonald, Dallin Keller and colleagues, with an educational yohana from [employer]. Review of Systems Const All systems reviewed & are unremarkable except as noted in HPI and below Card Denies chest pain at rest, Denies chest pain with activity, Denies edema, Denies irregular heart rhythm, Denies claudication, Denies dyspnea, Denies dyspnea on exertion, Denies orthopnea, Denies paroxysmal nocturnal dyspnea and Denies slow heart rate Resp Denies cough, Denies dyspnea and Denies dyspnea on exertion Neuro Denies confusion Psych Denies confusion Physical exam (Primary Care) Vital Signs: Last Vital Signs Pulse 68 09/08/25 12:35 BP 128/82 09/08/25 12:35 Pulse Ox 98 09/08/25 12:35 Oxygen Delivery Method Room Air 09/08/25 12:35 BMI result Body Mass Index 31.0 BMI Assessment/Plan discussion: High BMI High, discussed plan: lifestyle, weight reduction, dietary and physical activity Tobacco/Smoking Status: Tobacco use Status Tobacco use date assessed 02/10/25 09/08/25 12:38 Patient Tobacco Use Status Never used Tobacco 09/08/25 12:38 Tobacco use type Cigarette 09/08/25 12:38 e-Cigarette/Vaping Use Never Used 09/08/25 12:38 Thrive Assessment: Date of Thrive Assessment Date Thrive assessed 02/10/25 09/08/25 12:38 Currently or been in a relationship where the following occur: No concerns reported Const General: No confusion Orientation/consciousness: patient oriented x3 and No confusion Resp Effort & Inspection: normal respiratory effort Auscultation: clear to auscultation bilaterally Cardio Jugular venous distension: no JVD Rate: regular rate Rhythm: regular rhythm Heart sounds: S1 normal heart sound present and S2 normal heart sound present Neuro General: patient oriented x3, no focal motor deficits and No confusion Extrem General: Yes full ROM Psych Appearance: grossly normal Coding Level of Care Code Est Pt Level 3 (47705) Diagnoses Pre-op chest exam Z01.811 Time Spent (min) 20 Assessment & Plan Assessment & Plan (1) Pre-op chest exam: Code(s): Z01.811 - Encounter for preprocedural respiratory examination Category: Medical Plan Plan 1. Pre-Operative Examination The patient is a low-risk candidate undergoing a medium-risk total abdominal hysterectomy. An EKG is required for pre-operative clearance to rule out arrhythmia and should be completed before October. The order for the EKG was placed on August 18 and remains valid. The patient will proceed to the hospital for the EKG. An order for a bone density scan has also been placed but is not required for the immediate surgical clearance.
[2025-09-08 12:35] VITALS: BP 128/82; PULSE 68; O2SAT 98; BMI 31.0
== END 2025-09-08 12:54 | disposition home or self-care (01) ==
LOC: HO.HMCH 12:15
PROVIDERS: PCP Internal Medicine; Visit Provider Internal Medicine
DX: Z01.811 Encounter for preprocedural respiratory examination (principal)

== ENCOUNTER → 2025-09-09 07:56 | Outpatient (REF) | payer OTHER, SELFPAY ==
--- NOTE | 2025-09-09 08:00 | ECG_ITS ---
Test Reason : PREOP Blood Pressure : */* mmHG Vent. Rate : 67 BPM Atrial Rate : 67 BPM P-R Int : 164 ms QRS Dur : 106 ms QT Int : 378 ms P-R-T Axes : -1 -50 5 degrees QTcB Int : 399 ms Normal sinus rhythm Incomplete right bundle branch block Left anterior fascicular block Moderate voltage criteria for LVH, may be normal variant ( R in aVL , [place] product ) Abnormal ECG No previous ECGs available Referred By: Blaire Simpson Electronically Signed By: BALJIT MURRAY
== END ==
LOC: HO.CARD 07:56
PROVIDERS: PCP Internal Medicine; Visit Provider Internal Medicine
DX: Z01.811 Encounter for preprocedural respiratory examination (principal)
CPT/HCPCS: 93005

== ENCOUNTER → 2025-09-09 08:00 | Outpatient (BNV) | payer OTHER, SELFPAY | PROVIDERS: PCP Internal Medicine; Visit Provider Internal Medicine | DX: I45.2 Bifascicular block (principal) | CPT/HCPCS: 93010 ==